=== PATIENT | male | born 1940 | race Caucasian/White ===

== ENCOUNTER → 2017-12-07 08:41 | Outpatient (CLI) | payer MEDICARE, SELFPAY ==
[2017-12-07 09:14] LABS: Absolute Lymphocyte Count 1.51 X10^3/ul (0.83-4.51); Absolute Neutrophil Count 3.3 X10^3/uL (2.0-7.7); Basophil# 0.03 X10^3/uL; Basophil% 0.6 % (0-1); Eosinophil# 0.17 X10^3/uL; Eosinophils% 3.1 % (0-5); Hematocrit 45.2 % (40-54); Hemoglobin 15.5 g/dl (13.0-16.5); Lymphocyte # 1.51 X10^3/ul (4.0); Lymphocyte % 27.9 % (19-41); Mean Corp Hgb Conc 34.3 g/gl (32-36); Mean Corpuscular Hgb 28.9 pg (27.0-32.0); Mean Corpuscular Volume 84.3 fL (80-94); Mean Platelet Vol. 9.9 fl (6.2-12.0); Monocyte# 0.44 X10^3/uL; Monocyte% 8.1 % (0-10); Neutrophil # 3.26 X10^3/uL (2.7-7.7); Neutrophil % 60.1 % (47-70); Platelet Count 243 K/mm3 (150-450); RBC Distribution Width CV 13.3 % (11.6-14.6); RBC Distribution Width SD 40.8 fl (35.1-43.9); Red Blood Count 5.36 M/mm3 (4.6-6.2); White Blood Count 5.4 K/mm3 (4.4-11.0)
[2017-12-07 09:20] LABS: POSITIVE COUNT NO; POSITIVE DIFFERENTIAL NO; POSITIVE MORPHOLOGY NO
[2017-12-07 09:54] LABS: AST(SGOT) 17 U/L (15-37); Alanine Aminotransfer ALT/SGPT 26 U/L (16-61); Albumin, Serum 3.6 g/dL (3.2-5.0); Alkaline Phosphatase 76 U/L (45-117); Anion Gap 6 (5-15); BUN 17 mg/dL (7-18); Calcium,Total 8.7 mg/dL (8.5-10.1); Chloride 105 mmol/L (98-107); Cholesterol 220 mg/dL (200); Creatinine, Serum 1.21 mg/dL (0.70-1.30); EST Glomerular Filtration Rate 62 mL/min (>60); Est Glom Filt Rate - Afr Amer 75 mL/min (>60); Globulin 3.7 g/dL (2.2-4.2); Glucose 101 mg/dL (74-106); High Density Lipoprotein 32 mg/dL; Protein, Total 7.3 g/dL (6.4-8.2); Sodium Level 140 mmol/L (136-145); Triglycerides 212 mg/dL; Very Low Density Lipoprotein 42 mg/dL (5-40)
== END ==
PROVIDERS: Family Provider Internal Medicine; PCP Internal Medicine; Visit Provider Internal Medicine
DX: I10 Essential (primary) hypertension (principal); E78.5 Hyperlipidemia, unspecified
CPT/HCPCS: 36415; 80053; 80061; 85025

== ENCOUNTER → 2018-10-11 11:15 | Outpatient (CLI) | payer MEDICARE, SELFPAY ==
[2018-09-14 08:17] VITALS: BMI 27.2
--- NOTE | 2018-10-11 11:19 | RAD_ITS ---
STUDY: X-RAY - LUMBAR SPINE REASON FOR EXAM: Male, 77 years old. Back pain. TECHNIQUE: 4 view(s) of the lumbar spine were obtained. COMPARISON: Comparison is made with prior study June 17, 2012. FINDINGS: Normal lumbar lordosis. There is no substantial scoliosis. There is a normal alignment of the vertebrae. There is multilevel endplate spondylosis of the lumbar vertebrae. There is multi-level degenerative disc disease with multi-level disc space narrowing. There is atherosclerotic calcification of the abdominal aorta without a demonstrated aneurysm. RAD/L/S Spine Min 4 Views IMPRESSION: Degenerative changes of the spine, as detailed above. Electronically Signed: Brian Benavides MD at 13:42 EST Tel [phone], Service support ,
--- NOTE | 2018-10-11 11:19 | RAD_ITS ---
STUDY: X-RAY - LEFT HIP REASON FOR EXAM: Male, 77 years old. Pain. TECHNIQUE: 2 views of the hip. COMPARISON: None. FINDINGS: Phleboliths are seen in the pelvis. Normal femoral head, neck, intertrochanteric region and visualized proximal femur. There is osteoarthritic spur formation of the acetabular rim. There is moderate articular joint space narrowing. Normal visualized superior and inferior pubic rami and ischial tuberosities. RAD/HIP, UNI W/ Pelvis 2-3 Views IMPRESSION: Degenerative changes of both hip joints. Electronically Signed: Brian Benavides MD at 12:26 EST Tel [phone], Service support ,
== END ==
PROVIDERS: Family Provider Internal Medicine; PCP Internal Medicine; Referring Provider Internal Medicine; Visit Provider Internal Medicine
DX: M54.5 Low back pain (principal)
CPT/HCPCS: 72110; 73502

== ENCOUNTER → 2018-10-14 14:59 | Outpatient (CLI) | payer MEDICARE, SELFPAY ==
[2018-09-14 08:17] VITALS: BMI 27.2
--- NOTE | 2018-10-14 15:07 | MRI_ITS ---
STUDY: MRI LUMBAR SPINE WITHOUT CONTRAST REASON FOR EXAM: Male, 77 years old. Severe left back pain with hip and groin pain TECHNIQUE: Standardized fat and water weighted pulse sequences were obtained in the sagittal and axial planes. COMPARISON: Radiographs 10/11/2018 FINDINGS: T12-L1: Normal endplates. Normal disc height, hydration and morphology. Normal bilateral facet joints. Normal central canal and bilateral lateral recesses. Normal bilateral intervertebral neural foramina. Normal lumbar lordosis. There is no substantial scoliosis. Normal conus medullaris that terminates at the T12-L1 level. L1-2: Normal disc. Bilateral facet hypertrophy. L2-3: Bulging annulus and central annular fissure with mild central canal stenosis. L3-4: Bulging annulus and bilateral facet and ligamentum flavum hypertrophy with mild central canal stenosis. L4-5: Bulging annulus and bilateral facet and ligamentum flavum hypertrophy with mild central canal stenosis. Right foraminal annular fissure with severe right foraminal stenosis and deflection of the exiting right L4 nerve root. L5-S1: Bulging annulus and superimposed left subarticular disc protrusion with mass effect on the transiting left S1 nerve root. Normal visualized sacral ala. Normal visualized paraspinous soft tissue structures. MRI/Spine Lumbar (Routine) IMPRESSION: Multilevel degenerative disease as described. Left subarticular disc protrusion at L5-S1 with mass effect on the transiting left S1 nerve root. Right foraminal annular fissure at L4-5 with deflection of the exiting right L4 nerve root. Electronically Signed: Reymundo Ponce MD at 0:14 EST Tel , Service support ,
== END ==
PROVIDERS: Family Provider Internal Medicine; PCP Internal Medicine; Referring Provider Internal Medicine; Visit Provider Internal Medicine
DX: M54.5 Low back pain (principal)
CPT/HCPCS: 72148

== ENCOUNTER 2018-12-26 10:00 | Outpatient (RCR) | payer MEDICARE, SELFPAY ==
[2018-09-14 08:17] VITALS: BMI 27.2
--- NOTE | 2018-12-15 12:32 | HP.PTEVAL_ITS ---
Patient's Visit Information ANAMIKA GAMEZ is a 78 year old M referred to Physical Therapy by RICARDO APONTE with a diagnosis of LUMBAR RADICULOPATHY. Date of Evaluation: 12/15/18 Physical Therapist: Navdeep Elizabeth, PT, Cert MDT, OCS - Visit Plan Duration: 4 Weeks Plan: S/P LAMINECTOMY. LUMBAR FLEXABLITY /ROM,LE STRENGTHENING,POSTURAL EX'S,DLS ABD BACK - Subjective Findings: This 78 y/o male who likes to be called by Alireza presents to physical therapy with with lumbar radiculopathy. Patient underwent s/p laminectomy on Nov 09 2018 at [facility] done by DR Vasquez. Patient d/c sme DOS. Patient seen DR last week for 6 wk check up recommended PT.Patient has MRI showed severe foraminal stenosis at L4-5,and protrusion L5-S1. Patient didnt have prior Patient has no pain just parathesia /tingling left legt to foot..Aggravting factors with decrease strength endurance with walking and standing.Coughing/sneezing -. Bowel/bladder -. Patient sleeping good.Patient curent lumbar surgery affects QOL. SOCAIL: . 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 GAIT: mild foward posture reciprocal pattern. NEURO: c/o paratghesia/tingling left leg to foot with ,cramping left lateral toes,reflexes L3-4,L4-5,L5-S1 1/3. LUMBAR ROM: flexion mod loss,extension mod loss,side glides mod loss,. SYMMTRIES : align. PALAPTION: unremarkable. INSCION: well approximate. MMT: quads/hams/hip 4/5,ankle 5/5 - Special Tests L/S Slump test left side: Negative L/S Slump test right side: Negative L/S Left Straight Leg Raise: Negative L/S Right Straight Leg Raise: Negative - Goals Goal 1:: Independant with HEP Goal Time Frame: 4-6 Weeks Goal 2:: Independan with posture/body mechanics for ADL;S Goal Time Frame: 4-6 Weeks Goal 3:: Patient to decrease symptoms by 60% or greater to improve function. Goal Time Frame: 4-6 Weeks Goal 4:: Patient to improve lumbar ROM for function of recovery Goal Time Frame: 4-6 Weeks Goal 5:: Patient improve KYLIE back score by 5 points to improve QOL Goal Time Frame: 4-6 Weeks - Rehabilitation Potential Physical Therapy Diagnosis: This 78 y/o male presents to physical therapy with s/p laminectomy with decrease Lumbar ROM,strength impairs walking and ADL'S mild symptoms parathesia right leg Rehabilitation Potential: Good - Anticipated Interventions Patient/Client Instruction: Educate patient on: Condition, Plan of Care For the Purpose of:: To decrease pain, To improve nutrient delivery to tissue, To improve muscle performance and motor function, To improve ability to perform ADL's, To increase tolerance to activity/condition/position, To improve performance and independence with ADL's, To improve ability of physical actions for home/community/work/leisure, To improve gait and locomotor functions, To improve health of tissue, To decrease soft tissue restriction, To increase flexibility/ROM, To improve endurance, To improve ability to perform tasks related to life management Therapeutic Exercise to Include: Strength training, Body mechanics, Postural training, Flexibilty training, Active ROM, Dynamic Lumbar Stabilization For the Purpose of:: To decrease pain, To improve muscle performance and motor function, To improve ability to perform ADL's, To increase tolerance to activity/condition/position, To improve performance and independence with ADL's, To improve ability of physical actions for home/community/work/leisure, To improve health of tissue, To decrease soft tissue restriction, To increase flexibility/ROM, To improve ability to perform tasks related to life management Cryotherapy (ice pack, ice massage): Yes Thermo therapy (hot pack): Yes For the Purpose of:: To decrease pain, To improve nutrient delivery to tissue, To increase oxygenation perfusion Thank you for the opportunity to evaluate your patient. For Medicare and Medicare HMO plans, please review the plan of care and approve it. It will need to be FAXED BACK to us at [phone] for Medicare purposes. For Medicare only, by signing this I certify the plan of care. Please let me know if there are questions or concerns regarding this plan of care. Physician Signature: Date:
--- NOTE | 2019-05-02 07:11 | HP.PT.NRP ---
HP - Discharge Summary (1) - Patient Information ANAMIKA GAMEZ was seen in my office for initial evaluation on 12/15/18. The following Plan of Care was established for this patient: Initial Duration: 4 Weeks - Anticipated Interventions Patient/Client Instruction: Educate patient on: Condition, Plan of Care For the Purpose of:: To decrease pain, To improve nutrient delivery to tissue, To improve muscle performance and motor function, To improve ability to perform ADL's, To increase tolerance to activity/condition/position, To improve performance and independence with ADL's, To improve ability of physical actions for home/community/work/leisure, To improve gait and locomotor functions, To improve health of tissue, To decrease soft tissue restriction, To increase flexibility/ROM, To improve endurance, To improve ability to perform tasks related to life management Therapeutic Exercise to Include: Strength training, Body mechanics, Postural training, Flexibilty training, Active ROM, Dynamic Lumbar Stabilization For the Purpose of:: To decrease pain, To improve muscle performance and motor function, To improve ability to perform ADL's, To increase tolerance to activity/condition/position, To improve performance and independence with ADL's, To improve ability of physical actions for home/community/work/leisure, To improve health of tissue, To decrease soft tissue restriction, To increase flexibility/ROM, To improve ability to perform tasks related to life management Cryotherapy (ice pack, ice massage): Yes Thermo therapy (hot pack): Yes For the Purpose of:: To decrease pain, To improve nutrient delivery to tissue, To increase oxygenation perfusion This patient was last seen in our office 12/26/18. Pertinent comments regarding their Physical therapy will appear below: Patient seen for PT for s/p laminectomy with PT focusing on DLS,postural ex's ,LE flexablity.Patient doing well progressing toward goals well ,thus is d/c from PT o HEP. At this point I will be discontinuing this patient from physical therapy. I would be happy to see this patient again in the future if found appropriate by the physician. Thank you! Navdeep Elizabeth, PT, Cert MDT, OCS
== END 2018-12-26 19:00 | disposition home or self-care (01) ==
LOC: PT 10:00
PROVIDERS: Family Provider Internal Medicine; PCP Internal Medicine
DX: M54.16 Radiculopathy, lumbar region (principal)
CPT/HCPCS: 97110; 97162

== ENCOUNTER 2019-01-23 06:59 | Day surgery (SDC) | payer MEDICARE, SELFPAY ==
[2019-01-13 08:05] VITALS: BMI 27.2
[2019-01-23] VITALS (8 sets, daily range): BP systolic 109–151; BP diastolic 61–76; PULSE 47–50; RESP 16; TEMP 36.2–36.7; O2SAT 95–99; BMI 27.1
--- NOTE | 2019-01-23 08:15 | IMM_PTH ---
PATIENT: ANAMIKA GAMEZ LOC: EN U#:[id number] AGE/SX: 78/M ROOM: RE01/23/[address]: Dr. Vick Fall MD : 1940 BED: DIS: 01/23/2019 SPEC #: [id number] RECD: 01/23/19 12:26 STATUS: LEONID REAdriana #: [id number] AVERY: 01/23/19 08:[address]: Vick Fall DEPT: IMMUNOHISTOCHEMISTRY RECD BY: Margaret Mckeon ENTERED: 01/23/19 12:26 SP TYPE: IMMUNO OTHR DR: Dr. Karie Miller DO Tissues: Stomach, NOS Procedures: H Pylori (initial) PHYSICIAN & INSTITUTION [place] [id number] SPECIMEN INFORMATION: Tissue Source: Antral biopsy Clinical Info: Dysphagia, GERD, history of adenoma Specimen Number: [id number] CPT code: 09969 METHODOLOGY: Deparaffinized sections of prefer/formalin-fixed tissue or PAP/DQ stained slides are incubated with monoclonal/polyclonal antibodies/oligonucleotide probes. Localization is made via biotin free immunoperoxidase method. Appropriate controls are performed and reacted as expected. Results on target cell population are indicated in the following table: RESULTS: ANTIBODY / CLONE RESULT H Pylori (polyclonal) negative These tests were developed and their performance characteristics determined by [facility]. They may not have been cleared or approved by the U.S. Food and Drug Administration. The FDA has determined that such clearance or approval is not necessary. INTERPRETATION: Antral biopsy: Negative for Helicobacter pylori organisms. FABIO:giuseppe 01/24/19
--- NOTE | 2019-01-23 08:15 | EGD_PTH ---
PATIENT: ANAMIKA GAMEZ LOC: EN U#:[id number] AGE/SX: 78/M ROOM: RE01/23/[address]: Dr. Vick Fall MD : 1940 BED: DIS: 01/23/2019 SPEC #: [id number] RECD: 01/23/19 09:29 STATUS: LEONID SHANDRA #: [id number] AVERY: 01/23/19 08:[address]: Vick Fall DEPT: SURGICAL PATHOLOGY RECD BY: Augustin Todd ENTERED: 01/23/19 11:19 SP TYPE: EGD BIOPSY OTHR DR: Dr. Karie Miller DO Tissues: Gastric mucous membrane Procedures: Surgery Specimen Level IV HEADER OPERATION: Colonoscopy, E[place] [place]-OP DIAGNOSIS: Dysphagia, GERD, history of adenoma TISSUE SUBMITTED: Antral biopsy for H. pylori and pathology MICROSCOPIC DIAGNOSIS Antral biopsy: Minimal gastritis. See microscopic description and comment. SJ:giuseppe 01/24/19 COMMENT The results of immunohistochemistry for Helicobacter pylori will be reported separately ([id number]). MICROSCOPIC DESCRIPTION Slides are reviewed. The specimen shows fragments of gastric mucosa with chronic inflammatory cell infiltrates in the lamina propria consisting of lymphocytes and plasma cells, consistent with minimal chronic gastritis. GROSS DESCRIPTION Received in fixative is one container labeled with the patient's name and designated antral biopsy. The specimen consists of one irregular fragment of light carey soft tissue that measures 0.5 x 0.2 x 0.1 cm. The specimen is totally submitted in one cassette. / SJ:rg 01/23/19 TC:3 CPT: 91921
--- NOTE | 2019-01-23 08:29 | OP.ENDO_ITS ---
01/23/2019 Karie Miller Re : Upper GI endoscopy procedure for Tio Miller This procedure was performed on Wednesday, January 23, 2019. My impressions and recommendations are as follows: Impressions : - Normal esophagus. - Z-line regular, 41 cm from the incisors. - Erythematous mucosa in the prepyloric region of the stomach. Biopsied. - Normal examined duodenum. Recommendations : - Await pathology results. - Repeat upper endoscopy PRN for surveillance. - Return to my office in 1 week. - Continue present medications. My findings are described in the full procedure note, which is enclosed. If I can be of further assistance, please feel free to contact me at Doctor phone number(s): , Fax: [phone], Work: . Sincerely, MD Vick Maza MD 01/23/2019 8:29:19 AM This report has been signed electronically.
--- NOTE | 2019-01-23 08:32 | OP.ENDO_ITS ---
01/23/2019 Karie iMller Re : Colonoscopy procedure for Tio Miller This procedure was performed on Wednesday, January 23, 2019. My impressions and recommendations are as follows: Impressions : - Diverticulosis in the sigmoid colon. No specimens collected. - The examined portion of the ileum was normal. - Non-bleeding internal hemorrhoids. - The examination was otherwise normal. Recommendations : - Discharge patient to home. - Resume previous diet. - Continue present medications. - Repeat colonoscopy in 10 years for screening purposes. - Return to my office in 1 week. My findings are described in the full procedure note, which is enclosed. If I can be of further assistance, please feel free to contact me at Doctor phone number(s): , Fax: [phone], Work: . Sincerely, MD Vick Maza MD 01/23/2019 8:31:44 AM This report has been signed electronically.
== END 2019-01-23 09:24 | disposition home or self-care (01) ==
LOC: EN 07:00 → AC 07:01
PROVIDERS: Family Provider Internal Medicine; PCP Internal Medicine; Referring Provider Internal Medicine; Visit Provider Surgery
PROC: 0DJD8ZZ Inspection of Lower Intestinal Tract, Via Natural or Artificial Opening Endoscopic (ICD-10-PCS; CPT 45378; principal; 2019-01-23 08:10)
DX: K29.70 Gastritis, unspecified, without bleeding (principal); K57.30 Diverticulosis of large intestine without perforation or abscess without bleeding; K64.8 Other hemorrhoids; K21.9 Gastro-esophageal reflux disease without esophagitis; E78.5 Hyperlipidemia, unspecified; N40.0 Benign prostatic hyperplasia without lower urinary tract symptoms; I11.0 Hypertensive heart disease with heart failure; I50.9 Heart failure, unspecified; Z87.891 Personal history of nicotine dependence; Z86.010 Personal history of colon polyps; Z85.820 Personal history of malignant melanoma of skin; Z79.82 Long term (current) use of aspirin; Z79.899 Other long term (current) drug therapy
CPT/HCPCS: 43239; 45378; 88305; 88342; J7120; J2405

== ENCOUNTER → 2019-04-21 | Outpatient (CLI) | payer SELFPAY ==
[2019-01-23 07:18] VITALS: BMI 27.1
[2019-03-30 14:29] VITALS: BMI 27.8
--- NOTE | 2019-04-21 14:26 | CT_ITS ---
tyHISTORY: CALCIUM SCORING OVER READ, HDL CT Heart Quantitative coronary calcium W/O contrast TECHNIQUE: Cone-down chest CT axial imaging performed without contrast to assess calcium scoring. # of images incl. paperwork: 152 COMPARISON: Chest x-ray 09/16/2016 FINDINGS: CALCIUM SCORE: Reported separately. HEART SCAN FINDINGS: The heart is normal in size.No pericardial effusion.Visualized thoracic aorta is non-aneurysmal. LUNG SCAN FINDINGS: Upper and lower lung de luna not included in the study.Visualized lungs are unremarkable without evidence of consolidation, mass, significant nodularity, or interstitial lung disease. OTHER: Visualized osseous structures demonstrate no destructive sclerotic or lytic lesions. CT/Limited Chest CT w/CCTA IMPRESSION: 1. Unremarkable exam. Individualized dose optimization techniques were used for this CT. at 1806 Reported and signed by: Barrett Encarnacion MD Electronically Signed: Barrett Encarnacion MD at 18:05 EDT Tel , Service support ,
--- NOTE | 2019-04-21 15:47 | CA.SCORE ---
Calcium Scoring Date of Study:: 04/21/19 Coronary Calcium Scoring: High-resolution Computed Tomographic imaging of the chest was performed on [04/21/2019], with particular attention paid to the coronary arteries. Images from the examination were analyzed for the presence and extent of coronary artery calcification , using coronary calcium quantification software. The patient tolerated the procedure well and there were no complications. The results of the coronary calcification analysis are provided below. - Findings Left Main (LM): 0 Left Anterior Descending (LAD): 140 Left Circumflex (LCX): 0 Right Coronary Artery (RCA): 0 Total Agatston Score: 140 Percentile Rankin - Conclusion Calcium Scoring Interpretation: Calcium Score Interpretation 0 No identifiable atherosclerotic plaque. Very low cardiovascular disease risk. <5% chance of presence coronary artery disease A Negative Examination 1-10 Minimal Plaque burden. Significant coronary artery disease very unlikely. 11-100 Mild plaque burden. Likely mild or minimal coronary atherosclerosis. 101-400 Moderate plaque burden Moderate non-obstructive coronary artery disease highly likely. Over 400 Extensive plaque burden. High likelihood of at least one significant coronary stenosis (>50% diameter) Calcium Score: 101 - 400 Moderate non-obstructive coronary artery disease highly like - Moderate nonobstructive plaque disease noted. Full evaluation of cardiac risk factors should include consideration of all conventional risk factors.
== END | disposition home or self-care (01) ==
LOC: CT 14:22
PROVIDERS: Family Provider Internal Medicine; PCP Internal Medicine; Referring Provider Internal Medicine; Visit Provider Internal Medicine
DX: E78.5 Hyperlipidemia, unspecified (principal)
CPT/HCPCS: 75571; 76380

== ENCOUNTER → 2019-07-17 | Outpatient (CLI) | payer MEDICARE, SELFPAY ==
[2019-03-30 14:29] VITALS: BMI 27.8
[2019-07-17 09:23] LABS: Absolute Lymphocyte Count 1.44 X10^3/uL (0.83-4.51); Absolute Neutrophil Count 3.9 X10^3/uL (2.0-7.7); Basophil# 0.03 X10^3/uL; Basophil% 0.5 % (0-1); Eosinophils% 3.3 % (0-5); Hematocrit 45.3 % (40-54); Hemoglobin 15.3 g/dL (13.0-16.5); Lymphocyte # 1.44 X10^3/ul (4.0); Lymphocyte % 23.8 % (19-41); Mean Corp Hgb Conc 33.8 g/dL (32-36); Mean Corpuscular Hgb 28.7 pg (27.0-32.0); Mean Corpuscular Volume 84.8 fL (80-94); Mean Platelet Vol. 10.5 fl (6.2-12.0); Monocyte# 0.43 X10^3/uL; Monocyte% 7.1 % (0-10); NRBC Flagged by Analyzer 0 % (0-5); Neutrophil # 3.93 X10^3/uL (2.7-7.7); Platelet Count 255 K/mm3 (150-450); RBC Distribution Width CV 12.3 % (11.6-14.6); RBC Distribution Width SD 37.7 fl (35.1-43.9); Red Blood Count 5.34 M/mm3 (4.6-6.2); White Blood Count 6.1 K/mm3 (4.4-11.0)
[2019-07-17 09:35] LABS: Hemoglobin A1c 5.2 % (4.2-6.3)
[2019-07-17 09:44] LABS: ALB/GLOB Ratio 1.1 RATIO (0.9-2.4); AST(SGOT) 16 U/L (15-37); Alanine Aminotransfer ALT/SGPT 24 U/L (16-61); Albumin, Serum 3.6 g/dL (3.2-5.0); Alkaline Phosphatase 79 U/L (45-117); Anion Gap 4 (5-15); BUN 20 mg/dL (7-18); BUN/Creat Ratio 16.7 RATIO (10-20); Calcium,Total 8.7 mg/dL (8.5-10.1); Chloride 106 mmol/L (98-107); Cholesterol 189 mg/dL (200); EST Glomerular Filtration Rate 62 mL/min (>60); Est Glom Filt Rate - Afr Amer 75 mL/min (>60); Globulin 3.2 g/dL (2.2-4.2); Glucose 93 mg/dL (74-106); High Density Lipoprotein 34 mg/dL; Protein, Total 6.8 g/dL (6.4-8.2); Sodium Level 139 mmol/L (136-145); Triglycerides 154 mg/dL; Very Low Density Lipoprotein 31 mg/dL (5-40)
== END | disposition home or self-care (01) ==
PROVIDERS: Family Provider Internal Medicine; PCP Internal Medicine; Referring Provider Internal Medicine; Visit Provider Internal Medicine
DX: R73.01 Impaired fasting glucose (principal); I10 Essential (primary) hypertension; E78.5 Hyperlipidemia, unspecified
CPT/HCPCS: 36415; 80053; 80061; 83036; 85025

== ENCOUNTER → 2019-08-05 | Outpatient (CLI) | payer MEDICARE, SELFPAY ==
[2019-03-30 14:29] VITALS: BMI 27.8
--- NOTE | 2019-08-05 08:41 | US_ITS ---
STUDY: ABDOMINAL ULTRASOUND REASON FOR EXAM: Male, 78 years old. Nausea TECHNIQUE: Transabdominal ultrasound was performed with real-time and static mercedes scale imaging. TECHNICAL QUALITY: Adequate. COMPARISON: None. FINDINGS: Liver: The liver measures 15.2 cm. There is normal echogenicity of the liver. The bile ducts are within normal limits. There is hepatic color flow. The direction of portal flow is hepatopetal. There is no demonstrated mass lesion. Gallbladder: Normal distended gallbladder. The gallbladder wall measures 3 mm. There is a negative sonographic Juarez's sign. There is no pericholecystic fluid. There is a questionable 7 x 4 mm gallbladder polyp/stone. Common Bile Duct (C.B.D.): The common bile duct measures 4 mm. Pancreas: Normal size of the head, body and tail of the pancreas. There is normal echogenicity of the pancreas. There is no demonstrated pancreatic mass or cyst. Spleen: Normal size of the spleen. The spleen measures 11.5 cm. Right Kidney: Normal size of the right kidney. The right kidney measures 11.1 x 4.7 x 4.9 cm. Normal renal cortex. The right cortex measures 1.4 cm. There is no demonstrated renal mass or cyst. There is no right hydronephrosis. Left Kidney: Normal size of the left kidney. The left kidney measures 9.8 x 5.1 x 5.3 cm. Normal renal cortex. The left cortex measures 1.8 cm. There is no demonstrated renal mass or cyst. There is no left hydronephrosis. Aorta: Mild atherosclerotic disease. I.V.C.: The IVC is patent. There is no ascites. US/Abdomen Complete IMPRESSION: Probable gallbladder polyp or stone. Electronically Signed: Swapnil Bhandari DO at 15:56 EDT Tel [phone], Service support ,
== END | disposition home or self-care (01) ==
LOC: US 08:40
PROVIDERS: Family Provider Internal Medicine; PCP Internal Medicine; Referring Provider Internal Medicine; Visit Provider Internal Medicine
DX: R11.0 Nausea (principal)
CPT/HCPCS: 76700

== ENCOUNTER → 2019-08-08 | Outpatient (CLI) | payer MEDICARE, SELFPAY ==
[2019-03-30 14:29] VITALS: BMI 27.8
--- NOTE | 2019-08-08 14:26 | STRESSREP_ITS ---
Stress Test Report Date: 08-08-19 Procedure: Exercise tolerance test/imaging study Indications: Chest pain Consent: Per the patient Procedure: The patient exercised on a Juventino protocol for 7 minutes completing Stage II and 1 minute of Stage III achieving a peak heart rate of 133 bpm (93 % predicted maximal heart rate) with a peak blood pressure 178/64 mmHg and a peak MET capacity of 8 METs. The baseline ECG demonstrated sinus bradycardia. The peak exercise ECG demonstrated approximately 0.5 to [address] segment depression in leads II, III, aVF, and V4 through V6 with resolution towards baseline beginning by 1 minute in recovery. There was a rare PAC during exercise. The functional capacity was considered good. There was no complaint of chest discomfort during exercise or recovery. The examination was discontinued secondary to dyspnea. Impression: 1. Technically adequate (percent predicted maximal heart rate greater than 85%) exercise tolerance test 2. Peak exercise ECG with approximately 0.5 to [address] segment depression in leads II, III, aVF, and 4 through V6 with resolution towards baseline beginning by 1 minute in recovery 3. There were no cardiac dysrhythmias pretest, during exercise, or recovery 4. Nuclear images pending Myocardial perfusion imaging study: Technique: The patient was injected with 11.8 mCi of technetium 99m Cardiolite and subsequently rest SPECT Cardiolite nuclear imaging was obtained in the horizontal long, vertical long, and short axis views. The patient exercised on a Juventino protocol for 7 minutes completing Stage II and 1 minute of Stage III achieving a peak heart rate of 133 bpm (93 % predicted maximal heart rate) with a peak blood pressure 178/64 mmHg and a peak MET capacity of 8 METs. The patient was injected with 36.0 mCi of technetium 99m Cardiolite and subsequently stress SPECT Cardiolite nuclear imaging was obtained in the horizontal long, vertical long, and short axis views. A gated Cardiolite study at peak stress was obtained. Interpretation: Rest and stress SPECT Cardiolite nuclear imaging status post realignment, normalization, and attenuation correction, demonstrates the appearance of relative uniform tracer uptake and myocardial perfusion appearing within normal limits. There is end systolic thickening and brightening. The gated Cardiolite study demonstrates myocardial thickening and inward wall motion. The reported LVEF is 66 %. Impression: 1. Rest and stress SPECT Cardiolite nuclear imaging demonstrate relative uniform tracer uptake and myocardial perfusion appearing within normal limits. 2. The gated Cardiolite study reports an LVEF of 66 %. This note was generated with [email or web address] software. It may contain incorrect words, spelling, and punctuation that were not noted in checking the note before signing.
== END | disposition home or self-care (01) ==
PROVIDERS: Family Provider Internal Medicine; PCP Internal Medicine; Referring Provider Internal Medicine; Visit Provider Internal Medicine
DX: R07.89 Other chest pain (principal)
CPT/HCPCS: 78452; 93017; A9500; A4216

== ENCOUNTER → 2019-09-05 12:07 | Outpatient (CLI) | payer MEDICARE, SELFPAY ==
[2019-08-29 13:02] VITALS: BMI 27.8
--- NOTE | 2019-09-05 12:08 | NM_ITS ---
CLINICAL: 78-year-old male with reported history of postprandial right upper quadrant abdominal pain and nausea. RADIONUCLIDE HEPATOBILIARY SCINTIGRAPHY COMPARISON: Previous CCK hepatobiliary scintigraphy study dated 09/24/2016, abdominal ultrasound report 08/05/2019 FINDINGS: Following the intravenous administration of 5.8 mCi of 99m Tc Mebrofenin, hepatobiliary images reveal: 1. Relatively prompt and homogeneous radiopharmaceutical concentration is noted by a normal sized liver. No parenchymal defects are identified. 2. Gallbladder activity is identified at 10 minutes post radiopharmaceutical administration. 3. Small intestinal tract is not visualized during 60 minutes of pre-CCK sequential imaging. Small bowel activity is identified following the administration of cholecystokinin. 4. Washout of the radiopharmaceutical by the hepatic parenchyma appears qualitatively normal. Cholecystokinin (0.02 ug/kg) was administered intravenously over a 30-minute period. The post CCK gallbladder ejection fraction calculated at 30 minutes following Cholecystokinin administration was noted to be 39.0 % (normal greater than 35%) compared to 80% defined on the previous examination. During 30 minutes of post CCK imaging, there is no scintigraphic evidence of reflux of the radiotracer into the common hepatic duct or refilling of the gallbladder. LA/Hepatobilliary Img w/Pharm Int IMPRESSION: 1. NORMAL 99m Tc Mebrofenin hepatobiliary imaging examination with Cholecystokinin. A. A gallbladder ejection fraction calculated to be greater than 35% following the administration of Cholecystokinin makes the probability of functional hepatobiliary disease (gallbladder and/or sphincter of Oddi dyskinesia) and/or organic hepatobiliary disease (chronic acalculous cholecystitis and/or cystic duct syndrome) to be low. (Mary Garcia et al, Journal of Nuclear Medicine 32:1695, 1991). B. Overall compared to the previous CCK hepatobiliary scintigraphy study dated 09/24/2016, there is no significant interval change. Electronically Signed: Gonzalez Danielle DO at 23:36 EST Tel , Service support ,
[2019-09-05 15:01] LABS: Absolute Lymphocyte Count 1.67 X10^3/uL (0.83-4.51); Basophil# 0.05 X10^3/uL; Basophil% 0.7 % (0-1); Eosinophil# 0.18 X10^3/uL; Eosinophils% 2.4 % (0-5); Hematocrit 43.2 % (40-54); Hemoglobin 14.9 g/dL (13.0-16.5); Lymphocyte # 1.67 X10^3/ul (4.0); Lymphocyte % 22.2 % (19-41); Mean Corp Hgb Conc 34.5 g/dL (32-36); Mean Corpuscular Hgb 28.9 pg (27.0-32.0); Mean Corpuscular Volume 83.7 fL (80-94); Mean Platelet Vol. 9.8 fl (6.2-12.0); Monocyte# 0.62 X10^3/uL; Monocyte% 8.3 % (0-10); NRBC Flagged by Analyzer 0 % (0-5); Neutrophil # 4.96 X10^3/uL (2.7-7.7); Platelet Count 241 K/mm3 (150-450); RBC Distribution Width CV 12.9 % (11.6-14.6); RBC Distribution Width SD 39.3 fl (35.1-43.9); Red Blood Count 5.16 M/mm3 (4.6-6.2); White Blood Count 7.5 K/mm3 (4.4-11.0)
[2019-09-05 15:28] LABS: AST(SGOT) 22 U/L (15-37); Alanine Aminotransfer ALT/SGPT 32 U/L (16-61)
== END ==
PROVIDERS: Family Provider Internal Medicine; PCP Internal Medicine; Referring Provider Surgery; Visit Provider Surgery
DX: R10.11 Right upper quadrant pain (principal); L82.1 Other seborrheic keratosis; L66.1 Lichen planopilaris; D22.5 Melanocytic nevi of trunk; B35.1 Tinea unguium; Z79.899 Other long term (current) drug therapy
CPT/HCPCS: 36415; 78227; 84450; 84460; 85025; A9537; J2805

== ENCOUNTER 2019-10-05 05:25 | Day surgery (SDC) | payer MEDICARE, SELFPAY ==
--- NOTE | 2019-08-29 05:47 | HP_ITS ---
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: No Is patient in pain?: No Allergies ezetimibe [From Zetia] Allergy (Intermediate, Verified 08/29/19 12:46) Itching, rash Sulfa (Sulfonamide Antibiotics) Allergy (Unknown, Verified 08/29/19 12:46) Pt had reaction as a child, cannot recall codeine Allergy (Verified 08/29/19 12:46) Itching Jgylman-Vrn-Epu Reductase Inhibitor Adverse Reaction (Intermediate, Verified 08/29/19 12:46) Myalgias lisinopril Adverse Reaction (Verified 08/29/19 12:46) Other Medications Aspirin [Aspirin, Baby] 81 mg PO DAILY@0800 09/16/16 [History Confirmed 08/29/19] Tamsulosin HCl [Flomax] 0.4 mg PO DAILY 09/16/16 [History Confirmed 08/29/19] coenzyme Q10 100 mg capsule 100 mg PO QDAY 03/29/18 [History Confirmed 08/29/19] multivitamin tablet 1 tab PO QDAY 03/29/18 [History Confirmed 08/29/19] omega-3 fatty acids 1,000 mg capsule 1,000 mg PO QDAY 03/29/18 [History Confirmed 08/29/19] omeprazole 20 mg capsule,delayed release 40 mg PO DAILY cap 03/31/18 [History Confirmed 08/29/19] tadalafil 20 mg tablet 20 mg PO DAILY PRN 09/14/18 [History Confirmed 08/29/19] turmeric 400 mg capsule 400 mg PO DAILY cap 09/14/18 [History Confirmed 08/29/19] losartan 50 mg tablet 50 mg PO DAILY 03/30/19 [History Confirmed 08/29/19] magnesium 250 mg (as magnesium oxide) tablet 250 mg PO DAILY 03/30/19 [History Confirmed 08/29/19] vitamin K2 40 mcg tablet 40 mcg PO DAILY 03/30/19 [History Confirmed 08/29/19] [facility] Medical History (Updated 08/29/19 @ 17:45 by Herbie Mcclendon MD) Abnormal gallbladder ultrasound (Acute) Essential (primary) hypertension (Chronic) Hyperlipidemia (Chronic) Nausea (Acute) DJD (degenerative joint disease) (Chronic) Diverticulosis of sigmoid colon (Chronic) Erectile dysfunction (Chronic) GERD (gastroesophageal reflux disease) (Chronic) Hemorrhoid (Chronic) History of colon polyps (Chronic) History of trigger finger (Chronic) Malignant melanoma (Chronic) Rosacea (Chronic) TMJ (temporomandibular joint disorder) (Chronic) Surgical History (Updated 08/29/19 @ 12:44 by Daisy Yang) History of cervical spinal surgery (Acute) History of esophagogastroduodenoscopy (EGD) (Acute ~01/23/19) History of colonoscopy (Chronic ~01/23/19) Status post trigger finger release (Chronic) History of lumbar surgery (Resolved) History of melanoma excision (Resolved) History of tonsillectomy (Resolved) Family History (Updated 08/29/19 @ 12:45 by Daisy Yang) Father , age 80+, cause unknown No problems noted. Mother , Age 77 of liver cancer Liver cancer Brother Brain cancer Cancer skin Social History (Updated 08/29/19 @ 17:47 by Herbie Mcclendon MD) Smoking Status: Never smoker alcohol intake: current alcohol intake frequency: a few times a month Alcohol type: beer substance use type: does not use caffeine: Yes Type: coffee Number of servings: 1 HPI HPI HPI: ANAMIKA GAEMZ, is a 78 M who presents to the office today for HPI HPI Surgical H&P: Yes HPI: ANAMIKA GAMEZ, is a 78 M who presents to the office today for surgical consultation regarding nausea and reflux and epigastric pain. The patient is referred by Dr. Karie Miller and a written compromise surgical consult and recommendations will be returned to her. 78-year-old gentleman. He claims that multiple years ago he had 2 severe episodes of right upper quadrant pain postprandially. He was instructed by his at that time that she suspected gallbladder disease. More recently he ate a pizza. Soon thereafter he had epigastric pain heartburn reflux-like symptoms. And since that time he has had constant unrelenting nausea to some degree or another. He has been on omeprazole for at least the past 3 to 5 years. He denies bright red blood per rectum or melena. He complains of upper abdominal discomfort and belching. He has not noticed any bright red blood per rectum or melena. At the [facility] on August 05, 2019 he had a abdominal ultrasound. Liver is normal at 15.2 cm. Bile ducts normal. There is a normally distended gallbladder. The gallbladder wall measures 3 mm. No sonographic Juarez sign. No pericholecystic fluid. There is a questionable 7 x 4 mm gallbladder polyp or stone. The common bile duct measures 4 mm. As of July 17, 2019 liver function tests were normal. White blood count 6.1 with a hemoglobin 15.3 hematocrit 45.3 platelet count 255,000. His most recent upper endoscopy was January 23, [address] Fall. Biopsies of that showed showed minimal gastritis. H. pylori was negative. The patient had a colonoscopy done the same setting. Diverticulosis the sigmoid noted. Routine screening exam at 10 years recommended. ROS General General: Yes weight change and fatigue; no appetite, colon cancer, breast cancer or weakness HEENT HEENT: No difficulty swallowing, eye injury, eye surgery, swollen glands or hoarseness Endo Endocrine: No thyroid disease, diabetes mellitus, thyroid cancer, Hair loss, heat intolerance or cold intolerance Skin Skin: No rash or changing moles Breast Breast: No left breast lump, right breast lump, nipple discharge, breast pain, abnormal mammogram, abnormal US or breast enlargement Musc Musculoskeletal: No back problems, arthritis, rheumatoid arthritis, gout or joint pain Cardio Cardiovascular: Yes murmur and high blood pressure; no pacemaker, heart disease, atrial fibrillation, heart attack, heart stent, palpitations, shortness of breat with exertion or chest pain Psych Psychiatric: No depression, anxiety or hearing voices Resp Respiratory: No shortness of breath, No sleep apnea, No cough, No COPD, No asthma, No emphysema, No wheezing Gastro Gastrointestinal: No abdominal pain, Yes nausea or vomiting, No diarrhea, No constipation, No blood in stool, Yes acid reflux, Yes hemorrhoids, No ulcers, Yes gallbladder problem, No black,tarry stools Issa Hematologic: Yes blood thinners, No blood disorders, No bleeding, No anemia, No blood clots Neuro Neurologic: No system reviewed and no additional complaints, except as docu, No as per HPI, No abnormal walking, No abnormal hearing, No abnormal movements, No abnormal speech, No behavioral changes, No burning sensations, No confusion, No seizure-like activity, No unsteadiness, No dizziness, No localized weakness, No frequent falls, No headache(s), No lack of coordination, No loss of vision, No memory loss, Yes numbness, No other visual disturbances, No radiating pain, No restless legs, No sensory deficit, No fainting, Yes tingling, No tremor(s), No weakness, No other Exam Const General: cooperative, healthy appearing, comfortable, no acute distress Nutritional Appearance: average body habitus, well nourished Orientation: alert, awake HENLA Head: normal to inspection Chest Chest palpation & inspection: normal inspection of the chest Breast Palpation: No nipple discharge Resp Effort & Inspection: normal respiratory effort Auscultation: clear to auscultation bilaterally Cardio Rate: regular rate Rhythm: regular rhythm Heart Sounds: murmur GI Palpation: soft, no hepatosplenomegaly Auscultation: normal bowel sounds Musc Cervical Spine: normal cervical lordosis Neuro Cognition: normal cognition Extrem General: no calf tenderness bilaterally Psych Affect: normal affect Assessment & Plan Problems 1. Abnormal gallbladder ultrasound R93.2 Plan I had an extensive discussion with the patient today regarding his abnormal gallbladder ultrasound. It is not clear whether the finding is a gallbladder polyp or gallstone or adenosis or simply normal mucosa. I explained all of this to him. Not clear to me that this would be correlating with the degree of his nausea. He has been on omeprazole constantly so it is seem less likely that he has active peptic ulcer disease particularly in light that January 2019 he had an upper scope showing minimal gastritis and H. pylori negative. His clinical exam of his abdomen today is quite benign. I had extensive discussion regarding laparoscopic cholecystectomy with intraoperative cholangiography as a treatment option. He is aware of the technique, benefits, risks, alternatives. At this point I anticipate obtaining a hepatobiliary scan. Pending that outcome will then help decipher whether possibly a repeat upper endoscopy would be pertinent versus proceeding on with a lap scopic cholecystectomy with cholangiography. He has had an opportunity to ask and have questions answered. I very much appreciate the kind opportunity of assisting with his surgical care. CC: Dr. Karie Mcclendon M.D., F.A.C.S. Orders Orders: Hepatobilliary Img w/Pharm Int Today R10.11 Coding Level of Care Code 88056 Diagnoses Abnormal gallbladder ultrasound R93.2 08/29/19 1747 <Electronically signed by Herbie multani MD> Date _ Herbie Mcclendon MD [facility] Imaging Services [address] [place] [address] Hepatobilliary Img w/Pharm Int MR#: [id number] Acct: [id number] Name: ANAMIKA GAMEZ Rep #: [id number] : 1940 78 From: Primitivo Danielle DO PCP: Karie Miller DO Status: REG CLI Study:Hepatobilliary Img w/Pharm Int Date of Exam: 09/05/19 Exam# [id number] Ordering Dr: Lyssa Mcclendon MD CLINICAL: 78-year-old male with reported history of postprandial right upper quadrant abdominal pain and nausea. RADIONUCLIDE HEPATOBILIARY SCINTIGRAPHY COMPARISON: Previous CCK hepatobiliary scintigraphy study dated 09/24/2016, abdominal ultrasound report 08/05/2019 FINDINGS: Following the intravenous administration of 5.8 mCi of 99m Tc Mebrofenin, hepatobiliary images reveal: 1. Relatively prompt and homogeneous radiopharmaceutical concentration is noted by a normal sized liver. No parenchymal defects are identified. 2. Gallbladder activity is identified at 10 minutes post radiopharmaceutical administration. 3. Small intestinal tract is not visualized during 60 minutes of pre-CCK sequential imaging. Small bowel activity is identified following the administration of cholecystokinin. 4. Washout of the radiopharmaceutical by the hepatic parenchyma appears qualitatively normal. Cholecystokinin (0.02 ug/kg) was administered intravenously over a 30-minute period. The post CCK gallbladder ejection fraction calculated at 30 minutes following Cholecystokinin administration was noted to be 39.0 % (normal greater than 35%) compared to 80% defined on the previous examination. During 30 minutes of post CCK imaging, there is no scintigraphic evidence of reflux of the radiotracer into the common hepatic duct or refilling of the gallbladder. NM/Hepatobilliary Img w/Pharm Int IMPRESSION: 1. NORMAL 99m Tc Mebrofenin hepatobiliary imaging examination with Cholecystokinin. A. A gallbladder ejection fraction calculated to be greater than 35% following the administration of Cholecystokinin makes the probability of functional hepatobiliary disease (gallbladder and/or sphincter of Oddi dyskinesia) and/or organic hepatobiliary disease (chronic acalculous cholecystitis and/or cystic duct syndrome) to be low. (Mary Garcia et al, Journal of Nuclear Medicine 32:1695, 1990). B. Overall compared to the previous CCK hepatobiliary scintigraphy study dated 09/24/2016, there is no significant interval change. Electronically Signed: Gonzalez Danielle DO at 23:36 EST Tel , Service support , CC: Karie Miller DO; Herbie Mcclendon MD ~ Order Runner: Signed Patient has a borderline hepatobiliary scan. Based upon the colicky episodes pain the potential for gallbladder polyp patient is elected proceed with a laparoscopic cholecystectomy with selective cholangiography. There was delayed emptying of bile into the small bowel. Cholangiograms are anticipated. He has had an opportunity to ask and have questions answered. We will proceed as noted. Herbie Mcclendon M.D., F.A.C.S.
[2019-08-29 13:02] VITALS: BMI 27.8
[2019-09-25 09:22] VITALS: BMI 27.8
[2019-10-05] VITALS (10 sets, daily range): BP systolic 100–134; BP diastolic 53–68; PULSE 42–70; RESP 14–18; TEMP 36.2–36.9; O2SAT 93–98; BMI 27.6
--- NOTE | 2019-10-05 05:32 | EKG12_ITS ---
Test Reason : Blood Pressure : / mmHG Vent. Rate : 056 BPM Atrial Rate : 056 BPM P-R Int : 228 ms QRS Dur : 102 ms QT Int : 408 ms P-R-T Axes : 074 082 064 degrees QTc Int : 393 ms Sinus bradycardia with 1st degree A-V block Otherwise normal ECG When compared with ECG of 16-SEP-2016 07:32, No significant change was found Confirmed by PANDA CURTIS, LUZ ([id number]), supervising editor trailer SHYAM YAP ([id number]) on 10/10/2019 9:25:05 AM Referred By: Herbie Mcclendon Confirmed By:LUZ MOSQUEDA MD
[2019-10-05] MEDS: Lactated Ringers 1,000 ML 15 ML IV ×2 (06:25→09:52)
--- NOTE | 2019-10-05 06:32 | DCINST_ITS ---
Discharge Diet: Light diet - advance as tolerated - if you have questions about your diet instructions, please talk to you doctor. Discharge Activity: May Not Drive - for 1 week or while taking narcotic pain medicine. May shower in (days): 1 Lifting Restrictions: 10 pounds Call your doctor if your incision/area has: Continuous Slow Oozing, Sudden Increased Bleeding, Increased Pain/ Swelling, Increased Redness, Foul Smelling Discharge Call your doctor if you observe: Fever of 101 or Higher Suture Line Care: Avoid Pulling/Pushing, Avoid Pinching/Bending Additional Dressing/Incision Instructions:: Change or remove dressing in 4 days. Leave steri-strips in place for 1 week. Allergies/Adverse Reactions: Allergies ezetimibe [From Zetia] Allergy (Intermediate, Verified 10/05/19 05:46) Itching, rash Sulfa (Sulfonamide Antibiotics) Allergy (Unknown, Verified 10/05/19 05:46) Pt had reaction as a child, cannot recall codeine Allergy (Verified 10/05/19 05:46) Itching Bfznktv-Sbk-Lmj Reductase Inhibitor Adverse Reaction (Intermediate, Verified 10/05/19 05:46) Myalgias lisinopril Adverse Reaction (Verified 10/05/19 05:46) Other Medications to take at Discharge Aspirin [Aspirin, Baby] 81 mg PO DAILY@0800 09/16/16 Tamsulosin HCl [Flomax] 0.4 mg PO DAILY 09/16/16 coenzyme Q10 100 mg capsule 100 mg PO QDAY 03/29/18 multivitamin 1 tab PO QDAY 03/29/18 omega-3 fatty acids 1,000 mg capsule 1,000 mg PO QDAY 03/29/18 omeprazole 20 mg capsule,delayed release 40 mg PO DAILY cap 03/31/18 tadalafil 20 mg tablet 20 mg PO DAILY PRN 09/14/18 turmeric 400 mg capsule 400 mg PO DAILY cap 09/14/18 losartan 50 mg tablet 50 mg PO DAILY 03/30/19 magnesium oxide 250 mg PO DAILY 03/30/19 vitamin K2 40 mcg tablet 40 mcg PO DAILY 03/30/19 Primary Care Physician: Karie Miller DO [Primary Care Provider] - Test Results: Test results from this visit will be discussed in further detail at your follow- up appointment, if applicable. Please Follow Up With: eHrbie Mcclendon MD - [phone] When: Call to make an appointment to be seen in about 10 days.
[2019-10-05] MEDS: Cefazolin 2 GM in 0.9% Normal Saline 100 ML IV (07:11)
--- NOTE | 2019-10-05 07:15 | RAD_ITS ---
CLINICAL HISTORY: Male, 78 years old. Fluoroscopy services provided for clinical procedure. Please refer to operating physician''s procedure note for additional detail. PROCEDURE: CHOLANGIOGRAM - pain. FLUOROSCOPY TIME (if supplied): (18 seconds.) TECHNIQUE: Multiple, fluoroscopic images of the right upper quadrant during cholangiogram are submitted for evaluation. FINDINGS: Opacified intrahepatic and extra hepatic bile ducts demonstrate unremarkable morphology and appearance. Specifically, no filling defect or stricture. RAD/Cholangiogram/ O R,Initial IMPRESSION: No evident stricture. No filling defect to suggest calculi. Fluoroscopy time 18.6 seconds. Electronically Signed: Rob Morejon MD at 13:39 EST , Service support ,
--- NOTE | 2019-10-05 07:15 | HERN_PTH ---
PATIENT: ANAMIKA GAMEZ LOC: [facility] [place] U#:[id number] AGE/SX: 78/M ROOM: RE10/05/[address]: Dr. Herbie Mcclendon MD : 1940 BED: DIS: 10/05/2019 SPEC #: [id number] RECD: 10/05/19 09:15 STATUS: LEONID SIMONdAriana #: [id number] AVERY: 10/05/19 07:[address]: Herbie Mcclendon DEPT: SURGICAL PATHOLOGY RECD BY: Augustin Todd ENTERED: 10/05/19 11:20 SP TYPE: Hernia OTHR DR: Dr. Karie Miller, DO Tissues: A - HERNIA B - Gallbladder, NOS Procedures: Surgery Specimen Level II Surgery Specimen Level III HEADER OPERATION: Laparoscopic cholecystectomy with IOC PRE-OP DIAGNOSIS: Gallbladder polyp and umbilical hernia TISSUE SUBMITTED: A - Umbilical hernia sac, B - Gallbladder MICROSCOPIC DIAGNOSIS A. Umbilical hernia sac, herniorrhaphy: Fragments of fibrofatty tissue consistent with hernia sac. B. Gallbladder, cholecystectomy: Cholesterolosis and chronic cholecystitis. AM:giuseppe 10/06/19 MICROSCOPIC DESCRIPTION Slides are reviewed. GROSS DESCRIPTION A - Received in fixative is one container labeled with the patient's name and designated umbilical hernia sac. The specimen consists of two pieces of yellow adipose tissue measuring in aggregate 2.5 x 2 x 0.3 cm. The entire specimen is submitted in one cassette. B - Received is one container labeled with the patient's name and designated gallbladder. The specimen consists of a gallbladder measuring 6 cm in length and up to 3 cm in diameter. The external surface is pink-carey, smooth and glistening for the most part. Focally it is granular, hemorrhagic and contains cautery artifact. The gallbladder contains green-yellow mucoid bile. No stones are identified in the container or in the gallbladder. A polypoid area is noted consistent with area of cholesterolosis measuring 0.5 cm in greatest dimension. The gallbladder wall measures up to 0.2 cm in thickness. Cylinder Sander Operator sections from the gallbladder and the cystic duct are submitted in one cassette. The entire polypoid area is submitted. / SJ:giuseppe 10/05/19 TC:3 CPT: 76098, 61349
[2019-10-05] MEDS: Bupivacaine Mpf 0.5% 30 ML VIAL (07:30)
--- NOTE | 2019-10-05 08:18 | OP.PCM_ITS ---
Problem List (1) Gallbladder polyp Status: Acute Report of Operation Date of Procedure: 10/05/19 Pre-Operative Diagnosis: Gallbladder polyp Post-Operative Diagnosis: Same plus umbilical hernia Surgery/Procedure Performed:: Laparoscopic cholecystectomy with cholangiography. Umbilical herniorrhaphy Description of Surgical Findings:: 78-year-old gentleman was taken to the operating room placed on a table underwent general trach intubation esthesia. Ancef 2 g given intravenous preoperatively. The abdomen sterilely prepped draped. 0.5% Marcaine was used as local anesthetic. Throughout the procedure a total of 30 cc was used. Skin sites were pre-anesthetized. A vertical incision was made through the umbilicus and an umbilical hernia was encountered. Sharp and blunt dissection was used to dissect free the hernia sac and contents which was preperitoneal fat. Holding sutures of 0 Vicryl placed. The abdomen was insufflated with CO2 to a pressure of 10 mmHg pressure using a varies needle. 12 m trocar inserted. 10 laparoscope inserted. No evidence of any trocar injuries. Under a physician 5 Galloway ports were placed in the epigastric right upper quadrant and right latera l upper quadrant. The abdomen was rapidly inspected no evidence of any superficial abnormalities the gallbladder was distracted blunt dissection was instituted at the infundibulum until clearly the critical view was achieved. The cystic duct cystic artery identified. 2 hemo-lock clips were placed proximally in the cystic artery one distally prior to transecting it. The cystic duct was clipped incision made in the cystic duct cholangiogram cath inserted fluoroscopically control cholangiograms were obtained. This demonstrated normal ductal anatomy and free flow in the small bowel. An addit ional hemo-lock clip was placed on the cystic duct prior to transecting it. Gallbladder was dissected free from the liver bed. Very minimal amount of bile spillage was rapidly controlled. No stone spillage. The gallbladder was then immediately placed in a retrieval bag. The right upper quadrant was irrigated and aspirated free of excess fluid. The liver bed was inspected. Was noted to be completely hemostatic. All clips in proper position. The gallbladder was exited the umbilicus the remaining trochars removed under visualization the abdomen was allowed to deflate of the CO2. The umbilical hernia was approximated transversely with simple sutures of 0 Nurolon. Skin edges approximate interrupted 4-0 Monocryl subdermal stitches. Steri-Strips Telfa and OpSite dressings applied. Sponge and instrument and needle counts were reported to the surgeon to be correct. Blood loss minimal. Specimens hernia sac and contents and gallbladder. drains none. Blood loss minimal. Herbie Mcclendon M.D., F.A.C.S. Type of Anesthesia:: General Anesthesiologist: Ya Cortes
[2019-10-05] MEDS: Ketorolac 15 MG/ML Vial IV (09:50)
== END 2019-10-05 12:35 | disposition home or self-care (01) ==
LOC: SDC 05:25 → AC 05:27
PROVIDERS: Family Provider Internal Medicine; PCP Internal Medicine; Referring Provider Surgery; Visit Provider Surgery
PROC: (CPT 47610; principal; 2019-10-05 06:55)
DX: K81.1 Chronic cholecystitis (principal); K42.9 Umbilical hernia without obstruction or gangrene; I10 Essential (primary) hypertension; E78.5 Hyperlipidemia, unspecified; K21.9 Gastro-esophageal reflux disease without esophagitis; N52.9 Male erectile dysfunction, unspecified; N40.0 Benign prostatic hyperplasia without lower urinary tract symptoms; Z85.820 Personal history of malignant melanoma of skin; Z79.82 Long term (current) use of aspirin; Z79.899 Other long term (current) drug therapy
CPT/HCPCS: 47563; 49585; 74300; 76000; 88302; 88304; 93005; J7120; J2405

== ENCOUNTER → 2020-06-18 | Outpatient (CLI) | payer MEDICARE, SELFPAY ==
[2020-05-31 09:02] VITALS: BMI 27.3
--- NOTE | 2020-06-18 08:46 | ECHOD_ITS ---
Version 2 Reason For Study: HTN Procedure This was a 2D Doppler, Color Flow transthoracic echocardiogram. Exam performed in department. Left Ventricle Normal LV size. Left ventricular systolic function is normal. The estimated ejection fraction is 59 %. Stage 1 diastolic dysfunction. No regional wall motion abnormalities noted. Right Ventricle Normal RV size. Normal systolic function. Atria The left atrium is mildly enlarged. Normal right atrium. Mitral Valve Normal mitral valve. Tricuspid Valve Normal tricuspid valve. Mild (1+) tricuspid valve insufficiency. Pulmonary artery systolic pressure is 30 mmHg. Aortic Valve Normal aortic valve. Trisinus/trileaflet aortic valve. Mild (1+) eccentric aortic valve insufficiency. Pulmonic Valve Normal pulmonic valve. Great Vessels Normal aortic root. The pulmonary artery is normal size. Normal inferior vena cava. Pericardium/Pleural No pericardial effusion. MMode/2D Measurements & Calculations LVIDd: 5.0 cm IVSd: 0.89 cm Ao root diam: 3.5 cm LVIDs: 3.3 cm LVPWd: 0.96 cm RVDd: 3.6 cm FS: 33.5 % LAV(MOD-bp): 78.8 ml LA A4 area: 25.1 cm2 LA dimension(2D): 4.5 cm LAV(MOD-bp) Indexed: 38.6 ml/m2 LAV(MOD-sp2): 62.3 ml LAV(MOD-sp4): 83.7 ml RA A4 area: 18.9 cm2 Time Measurements MV dec time: 0.23 sec Doppler Measurements & Calculations MV E max puma: 58.8 cm/sec Lat Peak E' Puma: 5.4 cm/sec Med Peak E' Puma: 4.7 cm/sec MV A max puma: 81.7 cm/sec E/E' lat: 11.0 E/E' med: 12.5 MV E/A: 0.72 Ao V2 max: 143.3 cm/sec AI max puma: 380.4 cm/sec LV V1 max: 116.2 cm/sec Ao max P.2 mmHg AI max P.9 mmHg LV V1 max P.4 mmHg AI dec slope: 197.8 cm/sec2 AI P1/2t: 563.2 msec PA V2 max: 93.2 cm/sec PI end-d puma: 92.6 cm/sec TR max puma: 257.9 cm/sec TR max P.6 mmHg Interpretation Summary Normal LV size. Left ventricular systolic function is normal. The estimated ejection fraction is 59 %. Stage 1 diastolic dysfunction. The left atrium is mildly enlarged. Pulmonary artery systolic pressure is 30 mmHg. Mild (1+) eccentric aortic valve insufficiency. Ordering Physician: Dave Dan Referring Physician: ESTELLA HUMPHREY Performed By: Marielena Osborne, RDCS, RVT
== END | disposition home or self-care (01) ==
LOC: CVS 08:46
PROVIDERS: PCP Internal Medicine; Referring Provider Internal Medicine Cardiovascular Disease; Visit Provider Internal Medicine Cardiovascular Disease
DX: I10 Essential (primary) hypertension (principal); I35.1 Nonrheumatic aortic (valve) insufficiency
CPT/HCPCS: 93306

== ENCOUNTER → 2020-09-05 09:17 | Outpatient (CLI) | payer MEDICARE, SELFPAY ==
[2020-05-31 09:02] VITALS: BMI 27.3
[2020-09-05 09:56] LABS: Absolute Lymphocyte Count 1.58 X10^3/uL (0.83-4.51); Absolute Neutrophil Count 3.2 X10^3/uL (2.0-7.7); Basophil# 0.05 X10^3/uL; Basophil% 0.9 % (0-1); Eosinophil# 0.25 X10^3/uL; Eosinophils% 4.5 % (0-5); Hematocrit 40.4 % (40-54); Hemoglobin 13.5 g/dL (13.0-16.5); Lymphocyte # 1.58 X10^3/ul (4.0); Lymphocyte % 28.6 % (19-41); Mean Corp Hgb Conc 33.4 g/dL (32-36); Mean Corpuscular Hgb 28.3 pg (27.0-32.0); Mean Corpuscular Volume 84.7 fL (80-94); Mean Platelet Vol. 10.1 fl (6.2-12.0); Monocyte# 0.47 X10^3/uL; Monocyte% 8.5 % (0-10); NRBC Flagged by Analyzer 0 % (0-5); Neutrophil # 3.17 X10^3/uL (2.7-7.7); Neutrophil % 57.3 % (47-70); Platelet Count 299 K/mm3 (150-450); RBC Distribution Width SD 40.3 fl (35.1-43.9); Red Blood Count 4.77 M/mm3 (4.6-6.2); White Blood Count 5.5 K/mm3 (4.4-11.0)
[2020-09-05 10:23] LABS: ALB/GLOB Ratio 1.2 RATIO (0.9-2.4); AST(SGOT) 25 U/L (15-37); Alanine Aminotransfer ALT/SGPT 39 U/L (16-61); Albumin, Serum 3.7 g/dL (3.2-5.0); Alkaline Phosphatase 62 U/L (45-117); Anion Gap 5 (5-15); BUN 23 mg/dL (7-18); Calcium,Total 8.9 mg/dL (8.5-10.1); Chloride 110 mmol/L (98-107); Cholesterol 160 mg/dL (200); Creatinine, Serum 1.21 mg/dL (0.70-1.30); EST Glomerular Filtration Rate 61 mL/min (>60); Est Glom Filt Rate - Afr Amer 74 mL/min (>60); Globulin 3.2 g/dL (2.2-4.2); Glucose 91 mg/dL (74-106); High Density Lipoprotein 42 mg/dL; PSA,Total- Diagnostic 2.74 ng/mL (0.0-4.0); Potassium 4.4 mmol/L (3.5-5.1); Protein, Total 6.9 g/dL (6.4-8.2); Sodium Level 142 mmol/L (136-145); Triglycerides 79 mg/dL; Very Low Density Lipoprotein 16 mg/dL (5-40)
== END ==
PROVIDERS: PCP Internal Medicine; Referring Provider Internal Medicine; Visit Provider Internal Medicine
DX: N40.1 Benign prostatic hyperplasia with lower urinary tract symptoms (principal); I10 Essential (primary) hypertension; E78.5 Hyperlipidemia, unspecified
CPT/HCPCS: 36415; 80053; 80061; 84153; 85025

== ENCOUNTER 2021-12-15 16:27 | Outpatient (CLI) | payer MEDICARE, SELFPAY ==
[2021-12-15 18:26] LABS: ALB/GLOB Ratio 1.1 RATIO (0.9-2.4); AST(SGOT) 26 U/L (15-37); Alanine Aminotransfer ALT/SGPT 31 U/L (16-61); Albumin, Serum 3.9 g/dL (3.2-5.0); Alkaline Phosphatase 65 U/L (45-117); Anion Gap 4 (5-15); BUN 30 mg/dL (7-18); BUN/Creat Ratio 18.3 RATIO (10-20); CRP < 2.90 mg/L (0.0-3.0); Calcium,Total 9.4 mg/dL (8.5-10.1); Chloride 107 mmol/L (98-107); Creatinine, Serum 1.64 mg/dL (0.70-1.30); EST Glomerular Filtration Rate 43 mL/min (>60); Est Glom Filt Rate - Afr Amer 52 mL/min (>60); Globulin 3.4 g/dL (2.2-4.2); Glucose 89 mg/dL (74-106); Lipase 147 U/L (73-393); Potassium 4.2 mmol/L (3.5-5.1); Protein, Total 7.3 g/dL (6.4-8.2); Sodium Level 139 mmol/L (136-145)
[2021-12-15 18:31] LABS: Erythrocyte Sedimentation Rate 1 mm/hr (0-20)
[2021-12-15 18:33] LABS: Absolute Lymphocyte Count 1.37 X10^3/uL (0.83-4.51); Absolute Neutrophil Count 4.3 X10^3/uL (2.0-7.7); Basophil# 0.03 X10^3/uL; Basophil% 0.5 % (0-1); Eosinophil# 0.12 X10^3/uL; Eosinophils% 1.9 % (0-5); Hematocrit 41.6 % (40-54); Hemoglobin 14.4 g/dL (13.0-16.5); Lymphocyte # 1.37 X10^3/ul (0.83-4.51); Lymphocyte % 21.7 % (19-41); Mean Corp Hgb Conc 34.6 g/dL (32-36); Mean Corpuscular Hgb 29.2 pg (27.0-32.0); Mean Corpuscular Volume 84.4 fL (80-94); Mean Platelet Vol. 10.5 fl (6.2-12.0); Monocyte% 7.9 % (0-10); NRBC Flagged by Analyzer 0 % (0-5); Neutrophil # 4.28 X10^3/uL (2.7-7.7); Neutrophil % 67.7 % (47-70); Platelet Count 321 K/mm3 (150-450); RBC Distribution Width CV 12.6 % (11.6-14.6); RBC Distribution Width SD 38.5 fl (35.1-43.9); Red Blood Count 4.93 M/mm3 (4.6-6.2); White Blood Count 6.3 K/mm3 (4.4-11.0)
== END 2021-12-15 23:59 | disposition home or self-care (01) ==
PROVIDERS: PCP Internal Medicine; Referring Provider Internal Medicine; Visit Provider Internal Medicine
DX: R10.13 Epigastric pain (principal)
CPT/HCPCS: 36415; 80053; 83690; 85025; 85652; 86140

== ENCOUNTER 2022-01-13 06:40 | Outpatient (CLI) | payer MEDICARE, SELFPAY ==
--- NOTE | 2022-01-13 06:46 | CT_ITS ---
STUDY: CT ABDOMEN AND PELVIS WITH CONTRAST REASON FOR EXAM: Male, 81 years old. One month history of epigastric pain. RADIATION DOSAGE (If Supplied By Facility): CTDIvol = ( 13.45 ) mGy, DLP = ( 1002.03 ) mGycm TECHNIQUE: Transaxial images were obtained from the dome of the diaphragm to the symphysis pubis without oral contrast. IV 100mL Isovue-300 was administered. Sagittal and coronal images were reconstructed. Individualized dose optimization techniques were used for this CT. COMPARISON: Comparison is made with prior study dated 09/09/2015. FINDINGS: The visualized lung bases are unremarkable. The visualized portions of the heart are within normal limits. 2 mm cyst in the upper lateral aspect of the left lobe of the liver. This has decreased in size as compared to prior study. The patient is status post cholecystectomy. Normal spleen. Normal pancreas. Normal bilateral adrenal glands. Normal right kidney. Normal left kidney. Normal visualized stomach. Normal small intestine. There are multiple colonic diverticula consistent with diverticulosis. The appendix is visualized and appears normal. There is diffuse atherosclerotic calcification of the abdominal aorta and its major visceral branches, without a demonstrated aneurysm. Normal inferior vena cava. There is borderline retroperitoneal lymphadenopathy with enlarged nodes no greater than 10mm in the short axis diameter. Normal urinary bladder. There is enlargement of the prostate gland. It measures 5.3 cm x 5.2 cm. This causes an indentation at the bladder base. Normal abdominal wall. There are degenerative changes of the visualized lumbar spine. CT/Abdomen/Pelvis WITH Contrast IMPRESSION: Prostatic enlargement causing indentation of the bladder base. Sigmoid diverticulosis. The patient is status post cholecystectomy. Electronically Signed: Brian Benavides MD at 12:03 EDT ,
== END 2022-01-13 23:59 | disposition home or self-care (01) ==
LOC: CT 06:42
PROVIDERS: PCP Internal Medicine; Referring Provider Internal Medicine; Visit Provider Internal Medicine
DX: R10.13 Epigastric pain (principal)
CPT/HCPCS: 74177; Q9967

== ENCOUNTER → 2022-03-09 | Outpatient (CLI) | payer MEDICARE, SELFPAY ==
--- NOTE | 2022-03-09 15:40 | CT_ITS ---
STUDY: CTA CHEST REASON FOR EXAM: Male, 81 years old. ELEVATED D-DIMER RADIATION DOSAGE (If Supplied By Facility): CTDIvol = ( 13.49 ) mGy, DLP = ( 476.92 ) mGycm TECHNIQUE: The examination was performed with the intravenous administration of IV 100mL Isovue-370. Post-processing of the angiographic images was performed, with multiplanar reformation and 3D reconstruction. Individualized dose optimization techniques were used for this CT. COMPARISON: None. FINDINGS: Normal enhancement of the main pulmonary artery and right and left pulmonary arteries. Normal enhancement of the bilateral peripheral pulmonary arteries. There is no demonstrated pulmonary embolism. Normal thoracic aorta and visualized great vessels. There is no demonstrated aortic dissection. Normal heart and pericardium. Normal mediastinum. Normal hilar regions. Normal visualized trachea and bronchi. The lungs are well expanded. Normal pulmonary parenchyma. Normal pleura. Normal chest wall structures. Normal osseous structures. Normal visualized upper abdomen. CT/CTA Chest W/WO Contrast IMPRESSION: Normal CTA chest examination, without a demonstrated pulmonary embolism or arterial dissection. Electronically Signed: Gonzalez Black MD at 17:42 EDT ,
[2022-03-09 15:56] LABS: CREATININE FINGERSTICK < 0.9 mg/dL (0.70-1.30); EGFR FINGERSTICK > 60.0000 mL/min (>60)
== END | disposition home or self-care (01) ==
LOC: CT 15:13
PROVIDERS: PCP Internal Medicine; Visit Provider Internal Medicine
DX: R55 Syncope and collapse (principal); R79.89 Other specified abnormal findings of blood chemistry
CPT/HCPCS: 71275; 84484; 85379; Q9967

== ENCOUNTER → 2022-03-09 | Outpatient (CLI) | payer MEDICARE, SELFPAY ==
[2022-03-09 12:45] LABS: Troponin-I HS 3 pg/mL (3.0-78.0)
[2022-03-09 14:21] LABS: D-Dimer Quantitative (DVT/PE) 0.73 FEU/ug/m (0.27-0.49)
== END | disposition home or self-care (01) ==
LOC: LABSPEC 12:06
PROVIDERS: PCP Internal Medicine; Visit Provider Internal Medicine
DX: R55 Syncope and collapse (principal)
CPT/HCPCS: 84484; 85379

== ENCOUNTER → 2022-03-12 | Outpatient (CLI) | payer MEDICARE, SELFPAY ==
--- NOTE | 2022-03-12 10:38 | ECHOD_ITS ---
Reason For Study: SYNCOPE Procedure This was a 2D Doppler, Color Flow transthoracic echocardiogram. Exam performed in department. Left Ventricle Normal LV size. Left ventricular systolic function is normal. The estimated ejection fraction is 60 %. Stage 1 diastolic dysfunction. No regional wall motion abnormalities noted. Right Ventricle Normal RV size. Normal systolic function. Atria Normal left atrium. The right atrium is mildly enlarged. Bubble contrast study negative for right to left interatrial shunt. Mitral Valve Normal mitral valve. Trivial eccentric mitral valve insufficiency. Tricuspid Valve Normal tricuspid valve. Mild tricuspid valve insufficiency. Pulmonary artery systolic pressure is 26 mmHg. Aortic Valve Normal aortic valve. Trisinus/trileaflet aortic valve. Mild (1+) aortic valve insufficiency. Pulmonic Valve Normal pulmonic valve. Great Vessels Normal aortic root. The pulmonary artery is normal size. Normal inferior vena cava. Pericardium/Pleural No pericardial effusion. Medication 22 gauge I.V. with prn adaptor inserted into right arm. Diluted definity 2ml given slow IV push to enhance endocardial definition. Performed a rapid injection of agitated mix of 9 cc saline and 1cc air to assess for atrial septal defect. MMode/2D Measurements & Calculations LVIDd: 4.8 cm IVSd: 1.2 cm Ao root diam: 3.2 cm LVIDs: 2.9 cm LVPWd: 1.3 cm RVDd: 3.5 cm FS: 38.4 % LAV(MOD-sp4): 54.9 ml LVAd ap4: 36.7 cm2 SV(MOD-sp4): 81.3 ml LVLd ap4: 9.0 cm EDV(MOD-sp4): 120.5 ml EDV(sp4-el): 127.7 ml LVAs ap4: 18.9 cm2 LVLs ap4: 7.5 cm ESV(MOD-sp4): 39.1 ml ESV(sp4-el): 40.2 ml EF(MOD-sp4): 67.5 % EF(sp4-el): 68.5 % SV(sp4-el): 87.5 ml LA A4 area: 19.2 cm2 LA dimension(2D): 4.2 cm RA A4 area: 25.2 cm2 Doppler Measurements & Calculations MV E max puma: 72.2 cm/sec Lat Peak E' Puma: 7.8 cm/sec Med Peak E' Puma: 7.4 cm/sec MV A max puma: 105.1 cm/sec E/E' lat: 9.2 E/E' med: 9.7 MV E/A: 0.69 Ao V2 max: 123.4 cm/sec AI max puma: 408.5 cm/sec LV V1 max: 89.4 cm/sec Ao max P.1 mmHg AI max P.8 mmHg LV V1 max P.2 mmHg AI dec slope: 212.9 cm/sec2 AI P1/2t: 562.0 msec MR max puma: 560.8 cm/sec TR max puma: 238.5 cm/sec MR max P.8 mmHg TR max P.8 mmHg ECHO/Echo Complete W/ Contrast Interpretation Summary Normal LV size. Left ventricular systolic function is normal. The estimated ejection fraction is 60 %. Bubble contrast study negative for right to left interatrial shunt. The right atrium is mildly enlarged. Stage 1 diastolic dysfunction. No changes compared to the previous study Ordering Physician: Karie Miller Referring Physician: Karie Miller D.O. Performed By: Jossy Posey RCS
--- NOTE | 2022-03-12 10:53 | CDU_ITS ---
Reason For Study: Syncope Rt. Velocities/BP Lt. Velocities/BP Prox CCA 93/12.1 cm/sec. Prox CCA 77.3/13.4 cm/sec. Mid CCA 72.1/10.8 cm/sec. Mid CCA 74.7/12.1 cm/sec. Dist CCA 64.3/12.1 cm/sec. Dist CCA 68.2/16 cm/sec. Prox ICA 68.2/8.2 cm/sec. Prox ICA 68.2/12.1 cm/sec. Mid ICA 61.7/14.7 cm/sec. Mid ICA 61.7/17.3 cm/sec. Dist ICA 78.6/21.3 cm/sec. Dist ICA 68.2/18.6 cm/sec. Rt. ICA/CCA = 1.1. Lt. ICA/CCA = 0.9. Prox ECA 87.8/5.6 cm/sec. Prox ECA 99.5/6.9 cm/sec. Rt. Vert. 48.6/12.1 cm/sec. Lt. Vert. 41/11.3 cm/sec. Right Extracranial There is homogeneous, smooth atherosclerotic plaque noted in the right common carotid artery. There is intimal thickening but no significant atherosclerotic plaque noted in the right internal carotid artery. There is intimal thickening but no significant atherosclerotic plaque noted in the right external carotid artery. Antegrade flow is noted in the right vertebral artery. Left Extracranial There is homogeneous, smooth atherosclerotic plaque noted in the left common carotid artery. There is heterogeneous, irregular atherosclerotic plaque noted in the left internal carotid artery. There is intimal thickening but no significant atherosclerotic plaque noted in the left external carotid artery. Antegrade flow is noted in the left vertebral artery. Procedure Carotid Duplex 32462. This is a Carotid Duplex examination using B-mode, color flow and specral Doppler. Exam performed in department. VL/Carotid Duplex Ultrasound Interpretation Summary Intimal thickening of the right carotid bulb and proximal internal carotid thai ry with less than 50% stenosis Less than 50% stenosis right external carotid artery Minimal plaque at the proximal left internal carotid artery with less than 50% stenosis Less than 50% stenosis left external carotid artery Patent and in great vertebral arteries bilaterally Ordering Physician: Karie Miller Referring Physician: Karie Miller D.O. Performed By: Desirae Kaur RVT
== END | disposition home or self-care (01) ==
LOC: CVS 10:36
PROVIDERS: PCP Internal Medicine; Visit Provider Internal Medicine
DX: R55 Syncope and collapse (principal)
CPT/HCPCS: 93306; 93880; Q9957; A4216; C8929

== ENCOUNTER → 2022-03-18 | Outpatient (CLI) | payer MEDICARE, SELFPAY | END | disposition home or self-care (01) | LOC: PSN 08:45 | PROVIDERS: PCP Internal Medicine; Referring Provider Internal Medicine; Visit Provider Internal Medicine | DX: R55 Syncope and collapse (principal) | CPT/HCPCS: 93225; 93226 ==

== ENCOUNTER → 2022-04-07 | Outpatient (CLI) | payer MEDICARE, SELFPAY ==
--- NOTE | 2022-05-14 10:53 | STRESSREP ---
Stress Test Report Exercise myocardial perfusion stress test. 81-year-old man with a history of chest discomfort and dizziness. Stress protocol: Resting EKG demonstrates normal sinus rhythm with a rate of 81 bpm. No acute changes are noted resting blood pressure is 140/76 mmHg. The patient exercised according to the regular [employer] protocol for total duration of 8 minutes attaining a maximal heart rate of 141 bpm which was 101% of max impacted heart rate and a workload of 10.1 metabolic equivalents. The peak blood pressure was 166/70 mmHg. At rest there were no ST or T wave changes noted to suggest ischemia and at peak exercise upsloping ST changes were noted with did not meet the criteria for ischemia. No clinical angina was noted. Myocardial perfusion protocol. 10.1 mCi of technetium 99m sestamibi was injected at rest. The patient exercised according to regular [employer] protocol and at peak exercise 33.0 mCi of technetium 99m sestamibi was injected stress images were obtained stress and rest images were reconstructed in comparing the short axis vertical long and horizontal long axis. Gated images were also obtained Perfusion SPECT analysis: Review of the stress images demonstrate normal uptake of tracer noted in all areas of the myocardium. The resting images similar demonstrate normal uptake of tracer noted in all areas of the myocardium. No areas of reversibility are noted suggest ischemia and no previous infarct is noted. Gated SPECT analysis: The gated ejection fraction is noted to be normal. Conclusion: Normal exercise myocardial perfusion stress test at a high workload. Preserved ejection fraction.
== END | disposition home or self-care (01) ==
LOC: CVS 06:18
PROVIDERS: PCP Internal Medicine; Visit Provider Internal Medicine
DX: I25.10 Atherosclerotic heart disease of native coronary artery without angina pectoris (principal)
CPT/HCPCS: 78452; 93017; A9500; A4216

== ENCOUNTER → 2022-05-04 | Outpatient (CLI) | payer MEDICARE, SELFPAY ==
[2022-05-04 07:36] LABS: Absolute Lymphocyte Count 2.03 X10^3/uL (0.83-4.51); Absolute Neutrophil Count 3.5 X10^3/uL (2.0-7.7); Basophil# 0.05 X10^3/uL; Basophil% 0.8 % (0-1); Eosinophil# 0.25 X10^3/uL; Eosinophils% 3.9 % (0-5); Hematocrit 39.3 % (40-54); Hemoglobin 13.5 g/dL (13.0-16.5); Lymphocyte # 2.03 X10^3/ul (0.83-4.51); Lymphocyte % 31.6 % (19-41); Mean Corp Hgb Conc 34.4 g/dL (32-36); Mean Corpuscular Hgb 29.5 pg (27.0-32.0); Mean Corpuscular Volume 85.8 fL (80-94); Monocyte# 0.61 X10^3/uL; Monocyte% 9.5 % (0-10); NRBC Flagged by Analyzer 0 % (0-5); Neutrophil # 3.45 X10^3/uL (2.7-7.7); Neutrophil % 53.7 % (47-70); Platelet Count 305 K/mm3 (150-450); RBC Distribution Width SD 40.4 fl (35.1-43.9); Red Blood Count 4.58 M/mm3 (4.6-6.2); White Blood Count 6.4 K/mm3 (4.4-11.0)
[2022-05-04 08:01] LABS: AST(SGOT) 17 U/L (15-37); Alanine Aminotransfer ALT/SGPT 20 U/L (16-61); Albumin, Serum 3.5 g/dL (3.2-5.0); Alkaline Phosphatase 61 U/L (45-117); Anion Gap 2 (5-15); BUN 24 mg/dL (7-18); BUN/Creat Ratio 17.1 RATIO (10-20); Calcium,Total 8.9 mg/dL (8.5-10.1); Chloride 109 mmol/L (98-107); Cholesterol 152 mg/dL (200); EST Glomerular Filtration Rate 52 mL/min (>60); Est Glom Filt Rate - Afr Amer 63 mL/min (>60); Globulin 3.4 g/dL (2.2-4.2); Glucose 112 mg/dL (74-106); High Density Lipoprotein 34 mg/dL; Potassium 4.2 mmol/L (3.5-5.1); Protein, Total 6.9 g/dL (6.4-8.2); Sodium Level 141 mmol/L (136-145); Triglycerides 80 mg/dL; Very Low Density Lipoprotein 16 mg/dL (5-40)
[2022-05-04 09:07] LABS: Hemoglobin A1c 5.3 % (3.8-5.6)
== END | disposition home or self-care (01) ==
LOC: LAB 06:41
PROVIDERS: PCP Internal Medicine; Referring Provider Internal Medicine; Visit Provider Internal Medicine
DX: E78.5 Hyperlipidemia, unspecified (principal); R73.01 Impaired fasting glucose
CPT/HCPCS: 36415; 80053; 80061; 83036; 85025

== ENCOUNTER → 2022-09-08 | Outpatient (CLI) | payer MEDICARE, SELFPAY ==
[2022-09-08 07:29] LABS: Absolute Lymphocyte Count 1.81 X10^3/uL (0.83-4.51); Absolute Neutrophil Count 2.9 X10^3/uL (2.0-7.7); Basophil# 0.05 X10^3/uL; Basophil% 0.9 % (0-1); Eosinophil# 0.22 X10^3/uL; Hematocrit 40.8 % (40-54); Hemoglobin 14.1 g/dL (13.0-16.5); Lymphocyte # 1.81 X10^3/ul (0.83-4.51); Lymphocyte % 32.7 % (19-41); Mean Corp Hgb Conc 34.6 g/dL (32-36); Mean Corpuscular Hgb 29.3 pg (27.0-32.0); Mean Corpuscular Volume 84.8 fL (80-94); Mean Platelet Vol. 9.8 fl (6.2-12.0); NRBC Flagged by Analyzer 0 % (0-5); Neutrophil # 2.94 X10^3/uL (2.7-7.7); Platelet Count 284 K/mm3 (150-450); RBC Distribution Width CV 12.7 % (11.6-14.6); RBC Distribution Width SD 39.6 fl (35.1-43.9); Red Blood Count 4.81 M/mm3 (4.6-6.2); White Blood Count 5.5 K/mm3 (4.4-11.0)
[2022-09-08 07:44] LABS: Hemoglobin A1c 5.5 % (3.8-5.6)
[2022-09-08 07:52] LABS: ALB/GLOB Ratio 1.1 RATIO (0.9-2.4); AST(SGOT) 22 U/L (15-37); Alanine Aminotransfer ALT/SGPT 26 U/L (16-61); Albumin, Serum 3.6 g/dL (3.2-5.0); Alkaline Phosphatase 47 U/L (45-117); Anion Gap 7 (5-15); BUN 27 mg/dL (7-18); BUN/Creat Ratio 16.1 RATIO (10-20); Chloride 104 mmol/L (98-107); Cholesterol 184 mg/dL (200); Creatinine, Serum 1.68 mg/dL (0.70-1.30); EST Glomerular Filtration Rate 42 mL/min (>60); Est Glom Filt Rate - Afr Amer 51 mL/min (>60); Globulin 3.3 g/dL (2.2-4.2); Glucose 98 mg/dL (74-106); High Density Lipoprotein 38 mg/dL; Potassium 4.3 mmol/L (3.5-5.1); Protein, Total 6.9 g/dL (6.4-8.2); Sodium Level 141 mmol/L (136-145); Triglycerides 98 mg/dL; Very Low Density Lipoprotein 20 mg/dL (5-40)
== END | disposition home or self-care (01) ==
LOC: LAB 07:09
PROVIDERS: PCP Internal Medicine; Referring Provider Internal Medicine; Visit Provider Internal Medicine
DX: I10 Essential (primary) hypertension (principal); E78.5 Hyperlipidemia, unspecified; R73.01 Impaired fasting glucose
CPT/HCPCS: 36415; 80053; 80061; 83036; 85025

== ENCOUNTER → 2022-10-23 | Outpatient (CLI) | payer MEDICARE, SELFPAY ==
--- NOTE | 2022-10-23 12:24 | US_ITS ---
STUDY: RENAL ULTRASOUND - COMPLETE REASON FOR EXAM: Male, 81 years old. RENAL INSUFFICIENCY TECHNIQUE: Ultrasound evaluation of the kidneys was performed with real-time and static cortes-scale imaging. COMPARISON: Comparison is made with prior study dated 01/29/2016. FINDINGS: RIGHT KIDNEY: Normal location of the right kidney, which is normal in size. The right kidney measures 10.9 cm x 5.6 centimeters x 5.2 cm. There is a normal cortex of the right kidney. The renal cortex measures 1.2 cm. There is no right renal mass or cyst. There are no right renal calculi. There is no right hydronephrosis. DISTAL RIGHT URETER: There is non-visualization of the distal right ureter. There is no demonstrated right ureterovesical junction calculus. There is no demonstrated right ureteral jet. LEFT KIDNEY: Normal location of the left kidney, which is normal in size. The left kidney measures 10.4 cm x 5.8 cm x 5.1 cm. There is a normal cortex of the left kidney. The renal cortex measures 1.2 cm. There is no left renal mass or cyst. There are no left renal calculi. There is no left hydronephrosis. DISTAL LEFT URETER: There is non-visualization of the distal left ureter. There is no demonstrated left ureterovesical junction calculus. There is no demonstrated left ureteral jet. BLADDER: The distended urinary bladder has a volume of 22 ml. There is a normal wall thickness of the distended urinary bladder. There is no demonstrated mass within the urinary bladder. There are no demonstrated bladder calculi. Enlarged heterogeneous appearance of the prostate. US/Kidney and Bladder IMPRESSION: Normal ultrasound of the kidneys and urinary bladder. Enlarged heterogeneous appearance of the prostate. Electronically Signed: Brian Benavides MD at 14:22 EST ,
== END | disposition home or self-care (01) ==
LOC: US 12:22
PROVIDERS: PCP Internal Medicine; Referring Provider Internal Medicine; Visit Provider Internal Medicine
DX: N28.9 Disorder of kidney and ureter, unspecified (principal)
CPT/HCPCS: 76770

== ENCOUNTER → 2023-01-21 | Outpatient (CLI) | payer MEDICARE, SELFPAY ==
--- NOTE | 2023-01-21 07:47 | MRI_ITS ---
EXAM: MR HEAD WITHOUT AND WITH INTRAVENOUS CONTRAST CLINICAL INDICATION: Persistent headaches. TECHNIQUE: Multiplanar and multisequence MR images of the brain were obtained without and with intravenous contrast. This report was created using [employer] report generation technology. CONTRAST: IV 19ml Clariscan COMPARISON: None. FINDINGS: BRAIN AND EXTRA-AXIAL SPACES: Periventricular white matter T2 FLAIR hyperintensity in both cerebral hemispheres are chronic white matter ischemic changes. Following IV contrast administration, there are no abnormally enhancing lesions intra-axially and extra-axially. No intra- or extra-axial hemorrhage. Posterior fossa structures are unremarkable. No hydrocephalus. Basal cisterns are patent. No diffusion restriction to suspect acute or subacute ischemic infarct. No midline shift and no mass effects. SELLA: Unremarkable. Normal sella turcica, pituitary gland, infundibular stalk, optic chiasm and hypothalamus. AUDITORY SYSTEM: Unremarkable. The internal auditory canals are patent. BONES/JOINTS: Unremarkable. No discrete lytic or blastic abnormalities. SINUSES: Unremarkable as visualized. Clear. MASTOID AIR CELLS: Unremarkable as visualized. Clear. ORBITS: Unremarkable as visualized. Both globes, extraocular muscles, optic nerves and retrobulbar fat appear unremarkable. VASCULATURE: Unremarkable as visualized. Normal flow voids in the major intracranial circulation. MRI/Brain W/WO Contrast IMPRESSION: 1. No acute findings in the head/brain. 2. Chronic periventricular white matter ischemic changes in both cerebral hemispheres. 3. No abnormal enhancing lesions intra-axially and extra-axially. 4. Normal paranasal sinuses. Electronically Signed: Monico Quezada MD at 13:06 EDT ,
[2023-01-21 08:55] LABS: CREATININE FINGERSTICK < 0.9 mg/dL (0.70-1.30); EGFR FINGERSTICK > 60.0000 mL/min (>60)
== END | disposition home or self-care (01) ==
PROVIDERS: PCP Internal Medicine; Referring Provider Internal Medicine; Visit Provider Internal Medicine
DX: R51.9 Headache, unspecified (principal)
CPT/HCPCS: 70553; A9575

== ENCOUNTER → 2023-02-09 | Outpatient (CLI) | payer MEDICARE, SELFPAY ==
--- NOTE | 2023-02-09 07:12 | MRI_ITS ---
STUDY: EXAMINATION - MRV BRAIN WITHOUT CONTRAST REASON FOR EXAM: Male, 82 years old. having persistant headaches, just had MRI of brain in 01/2023 -- having persistant headaches, just had MRI of brain in 01/2023 -- having persistant headaches, just had MRI of brain in 01/2023 TECHNIQUE: 3D [id number] (TOF) imaging was performed in a eloy MRI scanner. COMPARISON: MRI of the brain dated January 21, 2023 FINDINGS: Normal flow within the superior sagittal sinus. Normal flow within the superficial cortical veins. Normal flow within the paired internal cerebral veins, vein of [place]ar and straight sinus. There is preferential flow within the left transverse and sigmoid sinuses, however there is demonstrated flow within the right transverse and sigmoid sinus. Normal flow within the bilateral jugular bulbs. There is no demonstrated evidence of venous sinus thrombosis or complete occlusion. MRI/MRV Head Without Contrast IMPRESSION: Normal unenhanced MRV of the brain. Electronically Signed: Corbin Rosa MD at 14:21 EDT ,
== END | disposition home or self-care (01) ==
LOC: MRI 07:09
PROVIDERS: PCP Internal Medicine; Referring Provider Internal Medicine; Visit Provider Internal Medicine
DX: R51.9 Headache, unspecified (principal)
CPT/HCPCS: 70544

== ENCOUNTER → 2023-03-08 | Outpatient (CLI) | payer MEDICARE, SELFPAY ==
--- NOTE | 2023-03-08 08:10 | MRI_ITS ---
EXAM: MR ANGIOGRAPHY HEAD WITHOUT INTRAVENOUS CONTRAST CLINICAL INDICATION: having persistant headaches, just had MRI of brain in 01/2023 -- Ask Alfredito Tillman. To be redone for mistaken MRV -- having persistant headaches, just had MRI of brain in 01/2023 TECHNIQUE: Routine [place]/brain 3D time of flight MR angiogram protocol was performed without intravenous contrast. COMPARISON: No relevant prior studies available. FINDINGS: RIGHT INTERNAL CAROTID ARTERY: No acute findings. No significant stenosis at the intracranial/visualized segments. No aneurysm. RIGHT ANTERIOR CEREBRAL ARTERY: Unremarkable. No significant stenosis at the visualized segments. Anterior communicating artery is present. No aneurysm. RIGHT MIDDLE CEREBRAL ARTERY: Unremarkable. No significant stenosis at the visualized segments. No aneurysm. RIGHT POSTERIOR CEREBRAL ARTERY: Unremarkable. No significant stenosis at the visualized segments. No aneurysm. RIGHT VERTEBRAL ARTERY: Unremarkable as visualized. No significant stenosis at the intradural/visualized segments. No aneurysm. LEFT INTERNAL CAROTID ARTERY: No acute findings. No significant stenosis at the intracranial/visualized segments. No aneurysm. LEFT ANTERIOR CEREBRAL ARTERY: Unremarkable. No significant stenosis at the visualized segments. Anterior communicating artery is present. No aneurysm. LEFT MIDDLE CEREBRAL ARTERY: Unremarkable. No significant stenosis at the visualized segments. No aneurysm. LEFT POSTERIOR CEREBRAL ARTERY: Unremarkable. No significant stenosis at the visualized segments. No aneurysm. LEFT VERTEBRAL ARTERY: Unremarkable as visualized. No significant stenosis at the intradural/visualized segments. No aneurysm. BASILAR ARTERY: Unremarkable. No significant stenosis. No aneurysm. OTHER VASCULATURE: No vascular malformation. OTHER FINDINGS: There are no acute findings of the [place] without a demonstrated aneurysm or hemodynamically significant stenosis. ALL ABOVE CRITERIA BY NASCET. MRI/MRA Head ONLY without Contrast IMPRESSION: There are no acute findings of the [place] without a demonstrated aneurysm or hemodynamically significant stenosis. ALL ABOVE CRITERIA BY NASCET. Electronically Signed: Freddie Nevarez MD at 18:58 EDT ,
== END | disposition home or self-care (01) ==
LOC: MRI 07:50
PROVIDERS: PCP Internal Medicine; Referring Provider Internal Medicine; Visit Provider Internal Medicine
DX: R51.9 Headache, unspecified (principal)
CPT/HCPCS: 70544

== ENCOUNTER → 2023-05-14 | Outpatient (CLI) | payer MEDICARE, SELFPAY ==
[2023-05-14 08:51] LABS: Absolute Lymphocyte Count 1.92 X10^3/uL (0.83-4.51); Absolute Neutrophil Count 4.2 X10^3/uL (2.0-7.7); Basophil# 0.06 X10^3/uL; Basophil% 0.8 % (0-1); Eosinophil# 0.36 X10^3/uL; Hematocrit 40.5 % (40-54); Hemoglobin 13.4 g/dL (13.0-16.5); Lymphocyte # 1.92 X10^3/ul (0.83-4.51); Lymphocyte % 26.7 % (19-41); Mean Corp Hgb Conc 33.1 g/dL (32-36); Mean Corpuscular Hgb 28.8 pg (27.0-32.0); Mean Corpuscular Volume 87.1 fL (80-94); Mean Platelet Vol. 9.8 fl (6.2-12.0); Monocyte# 0.62 X10^3/uL; Monocyte% 8.6 % (0-10); NRBC Flagged by Analyzer 0 % (0-5); Neutrophil # 4.18 X10^3/uL (2.7-7.7); Neutrophil % 58.1 % (47-70); Platelet Count 305 K/mm3 (150-450); RBC Distribution Width SD 40.8 fl (35.1-43.9); Red Blood Count 4.65 M/mm3 (4.6-6.2); White Blood Count 7.2 K/mm3 (4.4-11.0)
[2023-05-14 09:26] LABS: Hemoglobin A1c 5.1 % (3.8-5.6)
[2023-05-14 09:36] LABS: ALB/GLOB Ratio 0.9 RATIO (0.9-2.4); AST(SGOT) 28 U/L (15-37); Alanine Aminotransfer ALT/SGPT 36 U/L (16-61); Albumin, Serum 3.2 g/dL (3.2-5.0); Alkaline Phosphatase 71 U/L (45-117); Anion Gap 3 (5-15); BUN 20 mg/dL (7-18); BUN/Creat Ratio 15.5 RATIO (10-20); CRP, High Sensitivity Cardiac 5.58 mg/L; Calcium,Total 8.9 mg/dL (8.5-10.1); Chloride 108 mmol/L (98-107); Cholesterol 98 mg/dL (200); Creatinine, Serum 1.29 mg/dL (0.70-1.30); EST Glomerular Filtration Rate 57 mL/min (>60); Est Glom Filt Rate - Afr Amer 69 mL/min (>60); Globulin 3.4 g/dL (2.2-4.2); Glucose 95 mg/dL (74-106); High Density Lipoprotein 36 mg/dL; Potassium 3.8 mmol/L (3.5-5.1); Protein, Total 6.6 g/dL (6.4-8.2); Sodium Level 141 mmol/L (136-145); Triglycerides 108 mg/dL; Very Low Density Lipoprotein 22 mg/dL (5-40)
== END | disposition home or self-care (01) ==
LOC: LAB 07:34
PROVIDERS: PCP Internal Medicine; Referring Provider Internal Medicine; Visit Provider Internal Medicine
DX: I12.9 Hypertensive chronic kidney disease with stage 1 through stage 4 chronic kidney disease, or unspecified chronic kidney disease (principal); N18.31 Chronic kidney disease, stage 3a; E78.5 Hyperlipidemia, unspecified; R73.01 Impaired fasting glucose; R79.82 Elevated C-reactive protein (CRP)
CPT/HCPCS: 36415; 80053; 80061; 83036; 85025; 86141

== ENCOUNTER → 2023-06-01 | Outpatient (CLI) | payer MEDICARE, SELFPAY ==
--- NOTE | 2023-06-01 09:51 | CDU_ITS ---
Reason For Study: Carotid Stenosis Rt. Velocities/BP Lt. Velocities/BP Prox CCA 86.7/15.5 cm/sec. Prox CCA 83.0/16.7 cm/sec. Mid CCA 85.5/14.2 cm/sec. Mid CCA 89.1/16.7 cm/sec. Dist CCA 72.0/13.0 cm/sec. Dist CCA 69.5/15.5 cm/sec. Prox ICA 69.5/10.6 cm/sec. Prox ICA 87.9/19.2 cm/sec. Mid ICA 56.0/20.4 cm/sec. Mid ICA 72.0/25.3 cm/sec. Dist ICA 79.3/22.8 cm/sec. Dist ICA 85.5/30.2 cm/sec. Rt. ICA/CCA = 0.9. Lt. ICA/CCA = 1.0. Prox ECA 107.6/6.9 cm/sec. Prox ECA 95.3/9.3 cm/sec. Rt. Vert. 42.4/10.6 cm/sec. Lt. Vert. 47.4/13.0 cm/sec. Right Extracranial There is homogeneous, smooth atherosclerotic plaque noted in the right common carotid artery. There is intimal thickening but no significant atherosclerotic plaque noted in the right internal carotid artery. There is intimal thickening but no significant atherosclerotic plaque noted in the right external carotid artery. Antegrade flow is noted in the right vertebral artery. Left Extracranial There is homogeneous, smooth atherosclerotic plaque noted in the left common carotid artery. There is heterogeneous, irregular atherosclerotic plaque noted in the left internal carotid artery. There is intimal thickening but no significant atherosclerotic plaque noted in the left external carotid artery. Antegrade flow is noted in the left vertebral artery. VL/Carotid Duplex Ultrasound Interpretation Summary Normal right extracranial internal carotid. Mild (<50%) stenosis left extracranial internal carotid. Patent and antegrade vertebrals bilaterally. Ordering Physician: Karie Miller Referring Physician: Karie Miller Performed By: Wilfrido Snyder RVT
== END | disposition home or self-care (01) ==
LOC: CVS 09:49
PROVIDERS: PCP Internal Medicine; Referring Provider Internal Medicine; Visit Provider Internal Medicine
DX: I65.23 Occlusion and stenosis of bilateral carotid arteries (principal)
CPT/HCPCS: 93880

== ENCOUNTER → 2023-08-14 | Outpatient (CLI) | payer MEDICARE, SELFPAY ==
[2023-08-14 07:56] LABS: Absolute Lymphocyte Count 1.53 X10^3/uL (0.83-4.51); Absolute Neutrophil Count 2.8 X10^3/uL (2.0-7.7); Basophil# 0.05 X10^3/uL; Eosinophil# 0.26 X10^3/uL; Eosinophils% 5.2 % (0-5); Hematocrit 42.1 % (40-54); Hemoglobin 13.8 g/dL (13.0-16.5); Lymphocyte # 1.53 X10^3/ul (0.83-4.51); Lymphocyte % 30.4 % (19-41); Mean Corp Hgb Conc 32.8 g/dL (32-36); Mean Corpuscular Hgb 28.4 pg (27.0-32.0); Mean Corpuscular Volume 86.6 fL (80-94); Mean Platelet Vol. 9.5 fl (6.2-12.0); Monocyte% 7.9 % (0-10); NRBC Flagged by Analyzer 0 % (0-5); Neutrophil # 2.79 X10^3/uL (2.7-7.7); Neutrophil % 55.3 % (47-70); Platelet Count 265 K/mm3 (150-450); RBC Distribution Width CV 12.7 % (11.6-14.6); RBC Distribution Width SD 40.1 fl (35.1-43.9); Red Blood Count 4.86 M/mm3 (4.6-6.2)
[2023-08-14 08:39] LABS: AST(SGOT) 16 U/L (15-37); Alanine Aminotransfer ALT/SGPT 20 U/L (16-61); Albumin, Serum 3.4 g/dL (3.2-5.0); Alkaline Phosphatase 73 U/L (45-117); Anion Gap 3 (5-15); BUN 22 mg/dL (7-18); BUN/Creat Ratio 17.2 RATIO (10-20); Chloride 108 mmol/L (98-107); Cholesterol 125 mg/dL (200); Creatinine, Serum 1.28 mg/dL (0.70-1.30); EST Glomerular Filtration Rate 57 mL/min (>60); Est Glom Filt Rate - Afr Amer 69 mL/min (>60); Globulin 3.3 g/dL (2.2-4.2); Glucose 104 mg/dL (74-106); High Density Lipoprotein 44 mg/dL; Potassium 4.3 mmol/L (3.5-5.1); Protein, Total 6.7 g/dL (6.4-8.2); Sodium Level 139 mmol/L (136-145); Triglycerides 80 mg/dL; Very Low Density Lipoprotein 16 mg/dL (5-40)
== END | disposition home or self-care (01) ==
LOC: LAB 07:31
PROVIDERS: PCP Internal Medicine; Referring Provider Internal Medicine; Visit Provider Internal Medicine
DX: I12.9 Hypertensive chronic kidney disease with stage 1 through stage 4 chronic kidney disease, or unspecified chronic kidney disease (principal); Z18.31 Retained animal quills or spines; E78.5 Hyperlipidemia, unspecified
CPT/HCPCS: 36415; 80053; 80061; 85025

== ENCOUNTER 2023-10-21 09:35 | Outpatient (RCR) | payer MEDICARE, SELFPAY ==
--- NOTE | 2023-10-27 17:25 | HP.PTEVAL ---
Patient's Visit Information Visit Information Visit Information: ANAMIKA GAMEZ is a 82 year old M referred to Physical Therapy by Dr. Karie Miller DO with a diagnosis of Medial L knee pain, lateral R elbow pain. Date of Evaluation: 10/21/23 Physical Therapist: Derek Case DPT Visit Plan Frequency: 1-2x /Week Duration: 6 Weeks Plan: Start with lateral epicondyle DFM, wrist extensor stretching, wrist extensor eccentric strengthening, Quad and glute medius strengthening. Subjective Subjective: Pt. is here today for his initial evaluation with diagnosis of R elbow pain and L knee pain. Pt. reports having increased L knee pain after being hit by his dog from the lateral to medial region. Pt. is now having increased medial knee pain. No bruising noted, mild swelling noted. He does have increased pain with twisting, lateral movements, and squatting. Pt. has been wearing a light brace which as been helpful. Pt. likes hiking, but has held off due to pain. Pt. had an x-ray which was relatively clean. Pt. reports have medial joint line pain. Pt. is also have L lateral elbow pain with gripping and lifting objects. Pt. is retired. He likes to go on walks with his new dog. Pt. is hopeful to reduce symptoms in order to get back to walking his down and with his dog. Pain L medial knee: Pain Intensity (Out of 10): 3 Pain Intensity Range: 2 and 6 R lateral elbow: Pain Intensity (Out of 10): 2 Pain Intensity Range: 0 and 4 Objective Objective: POSTURE: Pt. has decent posture in stance. Pt. has normal knee positioning. No major varus or valgus. Good elbow positioning. PALPATION: Pt. has tenderness along L medial joint line of his knee, correlating with MCL region. No patellar pain. No posterior pain. Pt. also has increased pain along R lateral epicondyle. NEURO: normal throughout. ROM: Pt. has good L knee ROM into flexion and extension. MMT: LLE: knee ext 4/5, flexion 4+/5, hip: flexion 4+/5, abd 4+/5. GAIT: Pt. has farily normal gait pattern without increase in symptoms. He did have some issues with pivoting. + knee valgus testing, slight laxity but mostly painful. + also had a + lateral epicondyle test. Balance/Special Test Scores Lower Extremity Functional Score: 61 Quick DASH Score: 13.6350 Goals Goal 1:: LTG: Pt. to be I with HEP. Goal Time Frame: 4-6 Weeks Goal 2:: STG: Pt. to have decreased R elbow pain to 0-2/10 pain with all gripping, lifting and household work activities. Goal Time Frame: 2 Weeks Goal 3:: LTG: Pt. to be able to complete all household and recreational activities without increase in L knee pain. Goal Time Frame: 2-4 Weeks Goal 4:: LTG: Pt. to complete all hiking and walking dog without increase in L knee pain or instability. Goal Time Frame: 4-6 Weeks Goal 5:: LTG: Pt. to have increased R quad strength to 5/5 throughout. Goal Time Frame: 4-6 Weeks Rehabilitation Potential Physical Therapy Diagnosis: Pt. has signs and symptoms consistent with L MCL strain vs tear and lateral epicondylitis of his L elbow. Pt would benefit from PT to increase his quad control and work on eccentric wrist extension. Rehabilitation Potential: Excellent Anticipated Interventions Patient/Client Instruction: Educate patient on: Condition, Plan of Care, Risk Factors and Benefits of Fitness Program For the Purpose of:: To improve decision making, To facilitate caregiver knowledge, To improve self management, To prevent re-injury and To improve ability to perform tasks related to life management Therapeutic Exercise to Include: Strength training, Power training, Balance training, Coordination, Flexibilty training and Gait and locomotor training For the Purpose of:: To decrease pain, To decrease swelling/inflammation, To increase ROM, To improve nutrient delivery to tissue, To increase oxygenation perfusion, To improve ability to perform ADL's, To improve health of tissue, To decrease soft tissue restriction, To increase flexibility/ROM and To improve endurance Manual Therapy Techniques to Include: Passive ROM and Soft tissue mobilization For the Purpose of:: To decrease pain, To increase ROM, To improve nutrient delivery to tissue, To increase oxygenation perfusion and To improve muscle performance and motor function Ultrasound (thermal/non thermal): Yes For the Purpose of:: To decrease pain, To increase ROM, To improve nutrient delivery to tissue and To increase oxygenation perfusion Text: Thank you for the opportunity to evaluate your patient. For Medicare and Medicare HMO plans, please review the plan of care and approve it. It will need to be FAXED BACK to us at [phone] for Medicare purposes. For Medicare only, by signing this I certify the plan of care. Please let me know if there are questions or concerns regarding this plan of care. Physician Signature: Date:
--- NOTE | 2023-12-27 15:19 | HP.PT.NRP ---
Patient Information Patient Information: ANAMIKA GAMEZ was seen in my office for initial evaluation on 10/21/23. The following Plan of Care was established for this patient: POC Established Initial Frequency: 1-2x /Week Initial Duration: 6 Weeks Anticipated Interventions Patient/Client Instruction: Educate patient on: Condition, Plan of Care, Risk Factors and Benefits of Fitness Program For the Purpose of:: To improve decision making, To facilitate caregiver knowledge, To improve self management, To prevent re-injury and To improve ability to perform tasks related to life management Therapeutic Exercise to Include: Strength training, Power training, Balance training, Coordination, Flexibilty training and Gait and locomotor training For the Purpose of:: To decrease pain, To decrease swelling/inflammation, To increase ROM, To improve nutrient delivery to tissue, To increase oxygenation perfusion, To improve ability to perform ADL's, To improve health of tissue, To decrease soft tissue restriction, To increase flexibility/ROM and To improve endurance Manual Therapy Techniques to Include: Passive ROM and Soft tissue mobilization For the Purpose of:: To decrease pain, To increase ROM, To improve nutrient delivery to tissue, To increase oxygenation perfusion and To improve muscle performance and motor function Ultrasound (thermal/non thermal): Yes For the Purpose of:: To decrease pain, To increase ROM, To improve nutrient delivery to tissue and To increase oxygenation perfusion Last Seen Last Seen: This patient was last seen in our office 10/21/23. Pertinent comments regarding their Physical therapy will appear below: Pt. was seen for his initial evaluation for his knee and elbow. He was given exercises for both and was to complete as HEP. Pt. has not been seen since and will be DC from PT at this point in time. At this point I will be discontinuing this patient from physical therapy. I would be happy to see this patient again in the future if found appropriate by the physician. Thank you! Derek Case, DPT Balance/Gait/Functional tests Balance/Special Test Scores Lower Extremity Functional Score: 61 Quick DASH Score: 13.6350
== END 2023-10-21 19:00 | disposition home or self-care (01) ==
LOC: PT 09:35
PROVIDERS: PCP Internal Medicine; Visit Provider Internal Medicine
DX: S83.412D Sprain of medial collateral ligament of left knee, subsequent encounter (principal); M77.01 Medial epicondylitis, right elbow
CPT/HCPCS: 97161

== ENCOUNTER → 2023-10-25 | Outpatient (CLI) | payer MEDICARE, SELFPAY ==
--- NOTE | 2023-10-25 08:50 | BI_ITS ---
MAMMOGRAPHY - BILATERAL DIAGNOSTIC REASON FOR EXAM: Male, 82 years old. Right retroareolar pain. Patient is on the prostate medication. PERTINENT HISTORY: TECHNIQUE: Digital bilateral breast maddy (3D mammographic acquisition) in the CC and MLO projections. 2-D mediolateral oblique (MLO) and craniocaudad (CC) views of both breasts were obtained. CAD: Full Field Digital Mammography with Computer Added Detection was performed. COMPARISON: None. Baseline examination. FINDINGS: Breast Composition: There are scattered areas of fibroglandular density. There are no dominant masses or suspicious calcifications. No other significant abnormalities are identified. BI/DIAG MAMM W/CAD, BILAT IMPRESSION: Negative diagnostic mammogram. With the patient''s history of right retroareolar pain, correlation with ultrasound is recommended. ASSESSMENT CATEGORY: Approximately 10% of breast cancers are not detected by mammography. A normal mammogram should not delay biopsy of a clinically suspicious abnormality. Electronically Signed: Brian Benavides MD at 14:44 EST ,
--- NOTE | 2023-10-25 08:51 | US_ITS ---
STUDY: ULTRASOUND BREAST - RIGHT REASON FOR EXAM: Male, 82 years old. Pain in the right breast. TECHNIQUE: Axial and longitudinal images of the RIGHT breast were performed with a high resolution ultrasound transducer. # OF IMAGES: 21 COMPARISON: Comparison is made with prior mammogram done earlier today. FINDINGS: RIGHT Breast: The retroareolar region of the right breast was examined with ultrasound. There is a 6.1 mm x 9.2 mm hypoechoic irregular nodule corresponding to the area of pain. Increased vascularity is seen. Biopsy recommended. US/Breast Limited Unilateral IMPRESSION: 6.1 mm x 9.2 mm hypoechoic irregular nodule with increased vascularity in the right retroareolar region. Collection with ultrasound is recommended. ASSESSMENT CATEGORY: BIRADS Category 4: Suspicious - Biopsy Should Be Considered. A letter regarding these results will be sent to the patient by the facility within 30 days. Electronically Signed: Brian Benavides MD at 14:46 EST ,
== END | disposition home or self-care (01) ==
LOC: OPBI 08:47
PROVIDERS: PCP Internal Medicine; Referring Provider Internal Medicine; Visit Provider Internal Medicine
DX: N63.15 Unspecified lump in the right breast, overlapping quadrants (principal); N63.25 Unspecified lump in the left breast, overlapping quadrants
CPT/HCPCS: 76642; 77062; 77066; G0279

== ENCOUNTER → 2023-11-01 | Outpatient (CLI) | payer MEDICARE, SELFPAY ==
--- NOTE | 2023-11-01 08:20 | BRBX_PTH ---
PATHOLOGY RESULTS PATIENT: ANAMIKA GAMEZ LOC: [facility] U#:[id number] AGE/SX: 82/M ROOM: RE11/01/[address]: Dr. Herbie Mcclendon MD : [id number] BED: DIS: 11/01/2023 SPEC #: [id number] RECD: 11/01/23 09:57 STATUS: LEONID REAdriana #: [id number] AVERY: 11/01/23 08:[address]: Herbie Mcclendon DEPT: SURGICAL PATHOLOGY RECD BY: Flor Rodriguez ENTERED: 11/01/23 10:16 SP TYPE: BREAST BX OTHR DR: Dr. Karie Miller, DO Tissues: Right breast, NOS Procedures: Surgery Specimen Level IV HEADER OPERATION: Right breast biopsy PRE-OP DIAGNOSIS: Right breast mass TISSUE SUBMITTED: Right breast MICROSCOPIC DIAGNOSIS Right breast mass, core biopsy: Consistent with gynecomastia. AM:giuseppe 11/02/2023 COMMENT Case has been reviewed in consultation with Dr. Mclain who concurs with the above diagnosis. IDC:SJ MICROSCOPIC DESCRIPTION Slides are reviewed. GROSS DESCRIPTION Received in fixative is one container labeled with the patient's name and designated right breast. The specimen consists of multiple elongated fragments of carey-yellow fibroadipose tissue that in aggregate measure 1.5 x 0.5 x 0.1 cm. The entire specimen is submitted in one cassette. / SJ:giuseppe 11/01/2023 TC:5 Ischemic Time: 1 minute Fixation Time: 11 hours CPT: 19545
== END | disposition home or self-care (01) ==
LOC: LABSPEC 10:12
PROVIDERS: PCP Internal Medicine; Referring Provider Surgery; Visit Provider Surgery
DX: N63.10 Unspecified lump in the right breast, unspecified quadrant (principal)
CPT/HCPCS: 88305

== ENCOUNTER 2024-01-07 09:30 | Outpatient (RCR) | payer MEDICARE, SELFPAY ==
--- NOTE | 2023-12-27 18:12 | HP.PTEVAL_ITS ---
Patient's Visit Information Visit Information Visit Information: ANAMIKA GAMEZ is a 83 year old M referred to Physical Therapy by Dr. Karie Miller DO with a diagnosis of L hamstring strain. Date of Evaluation: 12/27/23 Physical Therapist: Freddie Knapp, PT, ATC Visit Plan Frequency: 2-3x /Week Duration: 4-6 Weeks Plan: L hamstring stretching, strengthening, core stab ex's, DTR, and HEP Subjective Subjective: Pt reports he had had LBP and L LE pain for about 3 weeks. Pt reports he went to the ER at that time secondary to the pain in his R glute region. Pt reports he was given a steroid which cleared that pain up immediately. However, he developed pain in the L glute and hamstring region at this time that is very limiting to him. Pt reports his L hamstring is very painful, and he is not sure how he could have injured it, but notes he is very active and likes to walk [place]. Pt reports he has difficulty with trying to doff his shoes secondary to pain. 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 Pt reports occasional sleep difficulty secondary to pain. 2/10 pain while sitting here at rest, 9/10 pain at worst. Pain L hamstring: Pain Intensity (Out of 10): 2 Pain Intensity Range: 9 Objective Objective: Neuro: B LE sensation is WNL to light touch. B patellar reflex= 2/3 MMT: R knee flex= 36.4, L knee flex= 9.3 #F Palpation: Pt is very tender with palpation to the L hamstring. Special test: Pos 90/90 test L LE 45 degree lag Balance/Special Test Scores Oswestry Low Back Score: 9 Goals Goal 1:: Decrease L hamstring pain x 50% to aid with sleep Goal Time Frame: 4-6 Weeks Goal 2:: Increase L hamstring strength by 10 #F to aid with ambulation Goal Time Frame: 4-6 Weeks Goal 3:: I with HEP Goal Time Frame: 4-6 Weeks Rehabilitation Potential Physical Therapy Diagnosis: Pt has L hamstring pain, weakness, and limited ROM secondary to L hamstring strain Rehabilitation Potential: Good Anticipated Interventions Patient/Client Instruction: Educate patient on: Condition and Plan of Care For the Purpose of:: To improve self management Therapeutic Exercise to Include: Strength training, Endurance training, Flexibilty training, Active ROM and Dynamic Lumbar Stabilization For the Purpose of:: To decrease pain, To increase ROM and To improve muscle performance and motor function Cryotherapy (ice pack, ice massage): Yes For the Purpose of:: To decrease pain Text: Thank you for the opportunity to evaluate your patient. For Medicare and Medicare HMO plans, please review the plan of care and approve it. It will need to be FAXED BACK to us at [phone] for Medicare purposes. For Medicare only, by signing this I certify the plan of care. Please let me know if there are questions or concerns regarding this plan of care. Physician Signature: Date:
--- NOTE | 2024-05-09 14:23 | HP.PT.NRP ---
Patient Information Patient Information: ANAMIKA GAMEZ was seen in my office for initial evaluation on 12/27/23. The following Plan of Care was established for this patient: POC Established Initial Frequency: 2-3x /Week Initial Duration: 4-6 Weeks Anticipated Interventions Patient/Client Instruction: Educate patient on: Condition and Plan of Care For the Purpose of:: To improve self management Therapeutic Exercise to Include: Strength training, Endurance training, Flexibilty training, Active ROM and Dynamic Lumbar Stabilization For the Purpose of:: To decrease pain, To increase ROM and To improve muscle performance and motor function Cryotherapy (ice pack, ice massage): Yes For the Purpose of:: To decrease pain Last Seen Last Seen: This patient was last seen in our office . Pertinent comments regarding their Physical therapy will appear below: Pt was treated for 5 PT visits for L HS pain through the date of 01/07/24. Pt has not returned through todays date and is discontinued at this time. At this point I will be discontinuing this patient from physical therapy. I would be happy to see this patient again in the future if found appropriate by the physician. Thank you! Freddie Knapp, PT, ATC Balance/Gait/Functional tests Balance/Special Test Scores Oswestry Low Back Score: 9
== END 2024-01-07 19:00 | disposition home or self-care (01) ==
LOC: PT 09:30
PROVIDERS: PCP Internal Medicine; Referring Provider Internal Medicine; Visit Provider Internal Medicine
DX: M54.16 Radiculopathy, lumbar region (principal)
CPT/HCPCS: 97110; 97161

== ENCOUNTER → 2024-03-20 | Outpatient (CLI) | payer MEDICARE, SELFPAY ==
--- NOTE | 2024-03-20 10:32 | STRESSREP ---
Stress Test Report Exercise myocardial perfusion stress test. 83-year-old man with a history of chest pain Stress protocol: Resting EKG demonstrates normal sinus rhythm with a rate of 51 bpm resting blood pressure is 146/70 mmHg. The patient exercised according to the regular [employer] protocol for a total duration of 6 minutes and 30 seconds attaining a maximum heart rate of 139 bpm which was 101% of maximum predicted heart rate; the maximum workload was 8.5 metabolic equivalents. At rest there were no ST or T wave changes noted to suggest ischemia and at peak exercise upsloping ST changes only were noted which did not meet the criteria for ischemia. No clinical angina was noted the test was terminated due to the target heart rate being achieved/fatigue. The peak blood pressure was 178/70 mmHg. Rate-pressure product was 23,000. Myocardial perfusion protocol. 14.1 mCi of technetium 99m sestamibi was injected at rest. The patient exercised according to regular [employer] protocol for total duration of 6 and half minutes and at peak exercise 43.9 mCi of technetium 99m sestamibi was injected stress images were obtained stress and rest images were reconstructed in comparing the short axis vertical long and horizontal long axis. Gated images were also obtained. Perfusion SPECT analysis: Review of the stress images demonstrate normal uptake of tracer noted in all areas of the myocardium. The resting images similarly demonstrate normal uptake of tracer noted in all areas of the myocardium. No areas of reversibility are noted to suggest ischemia no previous infarct was noted. Gated SPECT analysis: The gated ejection fraction is 67%. Conclusion: Normal exercise myocardial perfusion stress test at a moderate workload Preserved ejection fraction.
== END | disposition home or self-care (01) ==
LOC: CVS 06:02
PROVIDERS: PCP Internal Medicine; Referring Provider Internal Medicine; Visit Provider Internal Medicine
DX: I25.10 Atherosclerotic heart disease of native coronary artery without angina pectoris (principal)
CPT/HCPCS: 78452; 93017; A9500; A4216

== ENCOUNTER → 2024-04-13 | Outpatient (CLI) | payer MEDICARE, SELFPAY ==
[2024-04-13 08:06] LABS: AST(SGOT) 22 U/L (15-37); Alanine Aminotransfer ALT/SGPT 35 U/L (16-61); Albumin, Serum 3.3 g/dL (3.2-5.0); Alkaline Phosphatase 90 U/L (45-117); Anion Gap 5 (5-15); BUN 25 mg/dL (7-18); BUN/Creat Ratio 16.9 RATIO (10-20); Calcium,Total 9.3 mg/dL (8.5-10.1); Chloride 107 mmol/L (98-107); Cholesterol 215 mg/dL (200); Creatinine, Serum 1.48 mg/dL (0.70-1.30); EST Glomerular Filtration Rate 48 mL/min (>60); Est Glom Filt Rate - Afr Amer 58 mL/min (>60); Globulin 3.4 g/dL (2.2-4.2); Glucose 103 mg/dL (74-106); High Density Lipoprotein 37 mg/dL; PSA,Total - Annual Screen 1.12 ng/mL (0.00-4.00); Potassium 3.9 mmol/L (3.5-5.1); Protein, Total 6.7 g/dL (6.4-8.2); Sodium Level 139 mmol/L (136-145); Triglycerides 109 mg/dL; Very Low Density Lipoprotein 22 mg/dL (5-40)
[2024-04-13 09:02] LABS: Hemoglobin A1c 5.1 % (3.8-5.6)
== END | disposition home or self-care (01) ==
LOC: LAB 07:07
PROVIDERS: PCP Internal Medicine; Referring Provider Internal Medicine; Visit Provider Internal Medicine
DX: Z12.5 Encounter for screening for malignant neoplasm of prostate (principal); E78.5 Hyperlipidemia, unspecified; R73.01 Impaired fasting glucose; R79.82 Elevated C-reactive protein (CRP)
CPT/HCPCS: 36415; 80053; 80061; 83036; 84153; 86141; G0103

== ENCOUNTER → 2024-04-24 | Outpatient (CLI) | payer MEDICARE, SELFPAY ==
--- NOTE | 2024-04-24 07:44 | CDU_ITS ---
Reason For Study: Carotid Stenosis Rt. Velocities/BP Lt. Velocities/BP Prox CCA 96/10 cm/sec. Prox CCA 85/11 cm/sec. Mid CCA 92/10 cm/sec. Mid CCA 96/14 cm/sec. Dist CCA 79/11 cm/sec. Dist CCA 74/14 cm/sec. Prox ICA 86/9 cm/sec. Prox ICA 86/12 cm/sec. Mid ICA 50/13 cm/sec. Mid ICA 75/18 cm/sec. Dist ICA 99/23 cm/sec. Dist ICA 68/19 cm/sec. Rt. ICA/CCA = 1.1. Lt. ICA/CCA = 0.9. Prox ECA 114/4 cm/sec. Prox ECA 133/7 cm/sec. Rt. Vert. 37/8 cm/sec. Lt. Vert. 40/12 cm/sec. Right Extracranial There is intimal thickening but no significant atherosclerotic plaque noted in the right common carotid artery. There is intimal thickening but no significant atherosclerotic plaque noted in the right internal carotid artery. There is intimal thickening but no significant atherosclerotic plaque noted in the right external carotid artery. Antegrade flow is noted in the right vertebral artery. Left Extracranial There is heterogeneous, irregular atherosclerotic plaque noted in the left common carotid artery. There is heterogeneous, irregular atherosclerotic plaque noted in the left internal carotid artery. There is no significant atherosclerotic plaque noted in the left external carotid artery. Antegrade flow is noted in the left vertebral artery. Procedure Carotid Duplex 00077. This is a Carotid Duplex examination using B-mode, color flow and specral Doppler. Exam performed in department. VL/Carotid Duplex Ultrasound Interpretation Summary Intimal thickening at the proximal right internal carotid artery with less than 50% stenosis Less than 50% stenosis right external carotid artery Minimal irregular plaque at the proximal left internal carotid artery with less than 50% stenosis Less than 50% stenosis left external carotid artery Patent and antegrade vertebral arteries bilaterally No change from the previous examination of June 01, 2023 Ordering Physician: Karie Miller Referring Physician: Karie Miller Performed By: Ashley Bustos, REHAN, RVT
== END | disposition home or self-care (01) ==
LOC: CVS 07:43
PROVIDERS: PCP Internal Medicine; Referring Provider Internal Medicine; Visit Provider Internal Medicine
DX: I65.23 Occlusion and stenosis of bilateral carotid arteries (principal)
CPT/HCPCS: 93880

== ENCOUNTER → 2024-10-13 | Outpatient (CLI) | payer MEDICARE, SELFPAY ==
[2024-10-13 08:09] LABS: Absolute Lymphocyte Count 1.45 X10^3/uL (0.83-4.51); Absolute Neutrophil Count 3.4 X10^3/uL (2.0-7.7); Basophil# 0.05 X10^3/uL; Basophil% 0.9 % (0-1); Eosinophil# 0.37 X10^3/uL; Eosinophils% 6.4 % (0-5); Hemoglobin 13.9 g/dL (13.0-16.5); Lymphocyte # 1.45 X10^3/ul (0.83-4.51); Mean Corp Hgb Conc 33.1 g/dL (32-36); Mean Corpuscular Hgb 28.1 pg (27.0-32.0); Mean Corpuscular Volume 84.8 fL (80-94); Mean Platelet Vol. 9.6 fl (6.2-12.0); Monocyte% 8.6 % (0-10); NRBC Flagged by Analyzer 0 % (0-5); Neutrophil # 3.41 X10^3/uL (2.7-7.7); Neutrophil % 58.6 % (47-70); Platelet Count 256 K/mm3 (150-450); RBC Distribution Width SD 40.3 fl (35.1-43.9); Red Blood Count 4.95 M/mm3 (4.6-6.2); White Blood Count 5.8 K/mm3 (4.4-11.0)
[2024-10-13 08:26] LABS: AST(SGOT) 18 U/L (15-37); Alanine Aminotransfer ALT/SGPT 23 U/L (16-61); Albumin, Serum 3.4 g/dL (3.2-5.0); Alkaline Phosphatase 88 U/L (45-117); Anion Gap 4 (5-15); BUN 19 mg/dL (7-18); BUN/Creat Ratio 14.1 RATIO (10-20); Calcium,Total 8.7 mg/dL (8.5-10.1); Chloride 108 mmol/L (98-107); Cholesterol 215 mg/dL (200); Creatinine, Serum 1.35 mg/dL (0.70-1.30); EST Glomerular Filtration Rate 54 mL/min (>60); Est Glom Filt Rate - Afr Amer 65 mL/min (>60); Globulin 3.3 g/dL (2.2-4.2); Glucose 103 mg/dL (74-106); High Density Lipoprotein 43 mg/dL; Potassium 4.2 mmol/L (3.5-5.1); Protein, Total 6.7 g/dL (6.4-8.2); Sodium Level 140 mmol/L (136-145); Triglycerides 107 mg/dL; Very Low Density Lipoprotein 21 mg/dL (5-40)
[2024-10-13 08:27] LABS: Microalbumin,Random Urine 6.2 mg/L (NO RANGE EST.); Microalbumin:Creatinine Ratio 3.7 mg/g CRE (<30 mg/g CRE)
[2024-10-13 10:30] LABS: Hemoglobin A1c 5.3 % (3.8-5.6)
== END | disposition home or self-care (01) ==
LOC: LAB 07:37
PROVIDERS: PCP Internal Medicine; Referring Provider Internal Medicine; Visit Provider Internal Medicine
DX: I25.10 Atherosclerotic heart disease of native coronary artery without angina pectoris (principal); R73.01 Impaired fasting glucose; N28.9 Disorder of kidney and ureter, unspecified; E78.5 Hyperlipidemia, unspecified
CPT/HCPCS: 36415; 80053; 80061; 82043; 82570; 83036; 85025

== ENCOUNTER → 2024-12-15 | Outpatient (CLI) | payer MEDICARE, SELFPAY ==
[2024-12-15 15:08] LABS: Absolute Lymphocyte Count 1.57 X10^3/uL (0.83-4.51); Absolute Neutrophil Count 4.4 X10^3/uL (2.0-7.7); Basophil# 0.05 X10^3/uL; Basophil% 0.7 % (0-1); Eosinophils% 5.6 % (0-5); Hematocrit 42.5 % (40-54); Hemoglobin 14.1 g/dL (13.0-16.5); Lymphocyte # 1.57 X10^3/ul (0.83-4.51); Lymphocyte % 22.1 % (19-41); Mean Corp Hgb Conc 33.2 g/dL (32-36); Mean Corpuscular Hgb 28.5 pg (27.0-32.0); Mean Platelet Vol. 10.8 fl (6.2-12.0); Monocyte# 0.66 X10^3/uL; Monocyte% 9.3 % (0-10); NRBC Flagged by Analyzer 0 % (0-5); Neutrophil # 4.39 X10^3/uL (2.7-7.7); Platelet Count 293 K/mm3 (150-450); RBC Distribution Width CV 13.1 % (11.6-14.6); RBC Distribution Width SD 40.8 fl (35.1-43.9); Red Blood Count 4.94 M/mm3 (4.6-6.2); White Blood Count 7.1 K/mm3 (4.4-11.0)
[2024-12-15 17:15] LABS: Erythrocyte Sedimentation Rate < 1 mm/hr (0-20)
[2024-12-15 18:57] LABS: Troponin T High Sensitivity 14 ng/L (<=22)
[2024-12-15 19:23] LABS: CRP < 3.00 mg/L (0.0-3.0); Lipase 59 U/L (13-75)
== END | disposition home or self-care (01) ==
LOC: LABSPEC 14:48
PROVIDERS: PCP Internal Medicine; Referring Provider Internal Medicine; Visit Provider Internal Medicine
DX: R10.9 Unspecified abdominal pain (principal); R00.2 Palpitations; R07.89 Other chest pain
CPT/HCPCS: 83690; 84443; 84484; 85025; 85652; 86140

== ENCOUNTER → 2025-01-15 | Outpatient (CLI) | payer MEDICARE, SELFPAY ==
--- NOTE | 2025-01-15 08:43 | ECHOD_ITS ---
Reason For Study : CHEST DISCOMFORT Procedure This was a 2D Doppler, Color Flow transthoracic echocardiogram. Exam performed in department. Left Ventricle Normal LV size. Left ventricular systolic function is normal. The left ventricular ejection fraction is 60 %. Stage 1 diastolic dysfunction. No regional wall motion abnormalities noted. Right Ventricle Normal RV size. Normal systolic function. Atria Normal left atrium. Normal right atrium. Mitral Valve Normal mitral valve. Tricuspid Valve Normal tricuspid valve. Aortic Valve Normal aortic valve. Trisinus/trileaflet aortic valve. Pulmonic Valve Normal pulmonic valve. Great Vessels Normal aortic root. The pulmonary artery is normal size. Inferior vena cava collapse with respiration. Pericardium/Pleural No pericardial effusion. MMode/2D Measurements & Calculations LVIDd: 4.0 cm IVSd: 1.5 cm LVOT diam: 2.1 cm LVIDs: 2.8 cm LVPWd: 1.0 cm LVOT area: 3.3 cm2 RVDd: 4.8 cm FS: 29.9 % Ao root diam: 3.3 cm LAV(MOD-sp4): 69.2 ml LVAd ap4: 35.8 cm2 LVLd ap4: 9.3 cm EDV(MOD-sp4): 115.5 ml EDV(sp4-el): 116.7 ml LVAs ap4: 21.9 cm2 LVLs ap4: 8.0 cm ESV(MOD-sp4): 50.7 ml ESV(sp4-el): 50.9 ml EF(MOD-sp4): 56.1 % EF(sp4-el): 56.3 % SV(MOD-sp4): 64.8 ml SV(sp4-el): 65.7 ml LA A4 area: 23.1 cm2 SI(MOD-sp4): 32.1 ml/m2 LA dimension(2D): 3.4 cm RA A4 area: 22.0 cm2 Time Measurements MV dec time: 0.26 sec Doppler Measurements & Calculations MV E max puma: 66.0 cm/sec Lat Peak E' Puma: 8.1 cm/sec Med Peak E' Puma: 7.0 cm/sec MV A max puma: 90.5 cm/sec E/E' lat: 8.2 E/E' med: 9.4 MV E/A: 0.73 MV V2 max: 99.9 cm/sec Ao V2 max: 136.5 cm/sec MV max P.0 mmHg MV dec slope: 258.7 cm/sec2 Ao max P.5 mmHg MV V2 mean: 57.7 cm/sec Ao V2 mean: 90.7 cm/sec MV mean P.5 mmHg Ao mean P.9 mmHg MV V2 VTI: 38.6 cm Ao V2 VTI: 32.2 cm AV (velocity ratio): 0.81 MVA(VTI): 2.2 cm2 THI(I,D): 2.7 cm2 THI(V,D): 2.5 cm2 AI max puma: 418.2 cm/sec LV V1 max: 103.0 cm/sec SV(LVOT): 86.8 ml AI max P.0 mmHg LV V1 max P.2 mmHg LV V1 mean P.5 mmHg AI dec slope: 260.5 cm/sec2 LV V1 mean: 74.2 cm/sec AI P1/2t: 470.2 msec LV V1 VTI: 26.1 cm PA V2 max: 91.2 cm/sec PA V2 mean: 65.7 cm/sec ECHO/Echo Complete Interpretation Summary Normal LV size. Left ventricular systolic function is normal. The left ventricular ejection fraction is 60 %. Stage 1 diastolic dysfunction. Structurally normal valves. Ordering Physician: Karie Miller Referring Physician: Karie Miller Performed By: Jossy Posey RCS
== END | disposition home or self-care (01) ==
LOC: CVS 08:41
PROVIDERS: PCP Internal Medicine; Referring Provider Internal Medicine; Visit Provider Internal Medicine
DX: R07.89 Other chest pain (principal)
CPT/HCPCS: 93306

== ENCOUNTER → 2025-05-25 | Outpatient (CLI) | payer MEDICARE, SELFPAY ==
--- NOTE | 2025-05-25 08:48 | CDU_ITS ---
Reason For Study Reason For Study: Bilateral Carotid Stenosis Rt. Velocities/BP Lt. Velocities/BP Prox CCA 85.7/18.1 cm/sec. Prox CCA 69.5/13.0 cm/sec. Mid CCA 96.6/18.1 cm/sec. Mid CCA 95.3/16.7 cm/sec. Dist CCA 93.0/19.9 cm/sec. Dist CCA 87.9/19.2 cm/sec. Prox ICA 79.8/14.9 cm/sec. Prox ICA 99.0/22.8 cm/sec. Mid ICA 107.3/24.8 cm/sec. Mid ICA 83.0/26.5 cm/sec. Dist ICA 92.6/21.7 cm/sec. Dist ICA 75.6/26.5 cm/sec. Rt. ICA/CCA = 1.1. Lt. ICA/CCA = 1.0. Prox ECA 112.5/8.1 cm/sec. Prox ECA 87.9/5.6 cm/sec. Rt. Vert. 54.7/14.1 cm/sec. Lt. Vert. 47.1/15.0 cm/sec. Right Extracranial There is homogeneous, smooth atherosclerotic plaque noted in the right common carotid artery. There is intimal thickening but no significant atherosclerotic plaque noted in the right internal carotid artery. There is intimal thickening but no significant atherosclerotic plaque noted in the right external carotid artery. Antegrade flow is noted in the right vertebral artery. There is homogeneous, smooth atherosclerotic plaque noted in the right bulb. Left Extracranial There is heterogeneous, irregular atherosclerotic plaque noted in the left common carotid artery. There is heterogeneous, irregular atherosclerotic plaque noted in the left internal carotid artery. There is intimal thickening but no significant atherosclerotic plaque noted in the left external carotid artery. Antegrade flow is noted in the left vertebral artery. There is heterogeneous, irregular atherosclerotic plaque noted in the left bulb. Procedure Carotid Duplex [id number]. This is a Carotid Duplex examination using B-mode, color flow and specral Doppler. The exam was diagnostic. Exam performed in department. VL/Carotid Duplex Ultrasound Interpretation Summary No significant atherosclerotic plaque or stenosis noted in the right internal c arotid artery. Mild (<50%) stenosis left extracranial internal carotid. Flow within the vertebral arteries is antegrade bilaterally. Atherosclerotic plaque in the carotid bulbs does not appear to be hemodynamically significant bilaterally . Ordering Physician: Karie Miller Referring Physician: Karie Miller Performed By: Wilfrido Snyder RVT
== END | disposition home or self-care (01) ==
LOC: CVS 08:46
PROVIDERS: PCP Internal Medicine; Referring Provider Internal Medicine; Visit Provider Internal Medicine
DX: I65.23 Occlusion and stenosis of bilateral carotid arteries (principal)
CPT/HCPCS: 93880

== ENCOUNTER → 2025-05-29 | Outpatient (CLI) | payer MEDICARE, SELFPAY ==
[2025-05-29 10:00] LABS: Hematocrit 39.9 % (40-54); Hemoglobin 13.7 g/dL (13.0-16.5); Immature Granulocytes Count 0.020 X10^3/uL (0.0-0.0); Mean Corp Hgb Conc 34.3 g/dL (32-36); Mean Corpuscular Volume 85.4 fL (80-94); Mean Platelet Vol. 9.8 fl (6.2-12.0); NRBC Flagged by Analyzer 0 % (0-5); Platelet Count 260 K/mm3 (150-450); RBC Distribution Width CV 13.1 % (11.6-14.6); RBC Distribution Width SD 40.4 fl (35.1-43.9); Red Blood Count 4.67 M/mm3 (4.6-6.2); White Blood Count 5.2 K/mm3 (4.4-11.0)
[2025-05-29 10:27] LABS: AST(SGOT) 18 U/L (<=37); Alanine Aminotransfer ALT/SGPT 16 U/L (<=46); Albumin, Serum 3.9 g/dL (3.4-4.8); Alkaline Phosphatase 74 U/L (40-129); Anion Gap 11 (5-15); BUN 21 mg/dL (4-19); BUN/Creat Ratio 15.8 RATIO (10-20); Calcium,Total 9.2 mg/dL (7.6-11.0); Carbon Dioxide 24.6 mmol/L (21.0-32.0); Chloride 105 mmol/L (98-108); Cholesterol 205 mg/dL (<=200); Creatinine, Urine (random) 170.00 mg/dL (39.00-259.00); Globulin 2.5 g/dL (2.2-4.2); Glucose 99 mg/dL (70-99); Low Density Lipoprotein Calc. 150 mg/dL; Microalbumin,Random Urine < 12.0 mg/L (<20 mg/L); Potassium 4.3 mmol/L (3.3-5.1); Triglycerides 100 mg/dL; Very Low Density Lipoprotein 20 mg/dL (5-40); cholesterol:hdl ratio screen 5.82
[2025-05-30 17:08] LABS: PSA, Total 1.1 ng/mL (0.0-4.0)
== END | disposition home or self-care (01) ==
LOC: MTLAB 08:27
PROVIDERS: PCP Internal Medicine; Referring Provider Internal Medicine; Visit Provider Internal Medicine
DX: E78.5 Hyperlipidemia, unspecified (principal); R73.01 Impaired fasting glucose; Z12.5 Encounter for screening for malignant neoplasm of prostate
CPT/HCPCS: 36415; 80053; 80061; 82043; 82570; 83036; 84153; 85025

== ENCOUNTER → 2025-06-08 | Outpatient (CLI) | payer MEDICARE, SELFPAY ==
--- NOTE | 2025-06-08 13:47 | CT_ITS ---
PROCEDURE: ABDOMEN/PELVIS WITH CONTRAST 06/08/2025 REASON FOR EXAM: LEFT UPPER QUADRANT PAIN TECHNIQUE: Procedure Code: [id number] Modality: CT Procedure: ABDOMEN/PELVIS WITH CONTRAST Coronal and Sagittal reconstruction series were provided. CONTRAST: Isovue-300 VOLUME: 97 mL One or more dose reduction techniques were used (e.g., Automated exposure control, adjustment of the mA and/or kV according to patient size, use of iterative reconstruction technique. RADIATION DOSE SUMMARY: CTDlvol: 13+ 19 mGy DLP: 1047 mGycm COMPARISON: 01/13/2022. FINDINGS: Coronary artery calcifications are partially visualized. The lung bases are clear. The peripheral soft tissues are unremarkable. Mild atherosclerosis. The liver is unremarkable. The gallbladder is surgically absent. The pancreas, spleen, and adrenals are unremarkable. Symmetric enhancement of the bilateral kidneys. Bilateral renal cortical atrophy. Urinary bladder wall thickening. Enlarged prostate. Colonic diverticulosis without surrounding inflammatory changes. Normal caliber large and small bowel. CT/Abdomen/Pelvis WITH Contrast IMPRESSION: No acute abnormalities of the abdomen or pelvis. Diverticulosis. 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 If clinically indicated urinalysis can be considered to exclude infection. Reading Location: [id number]
== END | disposition home or self-care (01) ==
LOC: CT 13:46
PROVIDERS: PCP Internal Medicine; Referring Provider Internal Medicine; Visit Provider Internal Medicine
DX: R10.12 Left upper quadrant pain (principal)
CPT/HCPCS: 74177; Q9967

== ENCOUNTER → 2025-09-03 | Outpatient (CLI) | payer MEDICARE, SELFPAY ==
[2025-09-03 10:28] LABS: Hematocrit 42.6 % (40-54); Hemoglobin 14.3 g/dL (13.0-16.5); Immature Granulocytes Count 0.040 X10^3/uL (0.0-0.0); Mean Corp Hgb Conc 33.6 g/dL (32-36); Mean Corpuscular Volume 85.7 fL (80-94); Mean Platelet Vol. 9.8 fl (6.2-12.0); NRBC Flagged by Analyzer 0 % (0-5); Platelet Count 286 K/mm3 (150-450); RBC Distribution Width CV 13.0 % (11.6-14.6); RBC Distribution Width SD 40.5 fl (35.1-43.9); Red Blood Count 4.97 M/mm3 (4.6-6.2); White Blood Count 7.2 K/mm3 (4.4-11.0)
[2025-09-03 13:08] LABS: AST(SGOT) 23 U/L (<=37); Alanine Aminotransfer ALT/SGPT 29 U/L (<=46); Albumin, Serum 4.0 g/dL (3.4-4.8); Alkaline Phosphatase 81 U/L (40-129); Anion Gap 9 (5-15); BUN 22 mg/dL (4-19); BUN/Creat Ratio 14.9 RATIO (10-20); Calcium,Total 9.7 mg/dL (7.6-11.0); Carbon Dioxide 26.3 mmol/L (21.0-32.0); Chloride 103 mmol/L (98-108); Cholesterol 235 mg/dL (<=200); Globulin 2.9 g/dL (2.2-4.2); Glucose 112 mg/dL (70-99); Low Density Lipoprotein Calc. 176 mg/dL; Potassium 4.5 mmol/L (3.3-5.1); Triglycerides 130 mg/dL; Very Low Density Lipoprotein 26 mg/dL (5-40); cholesterol:hdl ratio screen 6.77
[2025-09-03 14:15] LABS: Creatinine, Urine (random) 143.00 mg/dL (39.00-259.00); Microalbumin,Random Urine < 12.0 mg/L (<20 mg/L)
== END | disposition home or self-care (01) ==
LOC: CIMLAB 09:33
PROVIDERS: PCP Internal Medicine; Referring Provider Internal Medicine; Visit Provider Internal Medicine
DX: R73.01 Impaired fasting glucose (principal); E78.5 Hyperlipidemia, unspecified
CPT/HCPCS: 36415; 80053; 80061; 82043; 82570; 83036; 85025